=== PATIENT | female | born 1945 | race Caucasian/White ===

== ENCOUNTER → 2020-01-22 | Outpatient (REF) | payer MEDICARE ==
[2020-01-22 16:08] LABS: BLOOD UREA NITROGEN 16 MG/DL (7-18); CALCIUM LEVEL 9.6 MG/DL (8.8-10.2); CARBON DIOXIDE LEVEL 29 MEQ/L (21-32); CHLORIDE LEVEL 105 MEQ/L (98-107); CREATININE FOR GFR 0.92 MG/DL (0.55-1.30); GLOMERULAR FILTRATION RATE > 60.0 (>39); GLUCOSE, FASTING 141 MG/DL (70-100); POTASSIUM SERUM 4.4 MEQ/L (3.5-5.1); SODIUM LEVEL 140 MEQ/L (136-145)
== END ==
LOC: M PLALAB 11:57
PROVIDERS: ATTEND Surgery
DX: N63.10 Unspecified lump in the right breast, unspecified quadrant (principal); N64.52 Nipple discharge

== ENCOUNTER → 2020-01-22 | Outpatient (CLI) | payer MEDICARE ==
--- NOTE | 2020-01-22 14:13 | REP ---
FOCUSED RIGHT BREAST SONOGRAPHY: HISTORY: Palpable lump. Clinician breast exam. Palpable lump 11-o'clock position right breast 7-10 cm from the nipple. No comparison breast imaging is available. FINDINGS: Scanning in the right breast in the region of the 11-o'clock position shows heterogeneous fibroglandular background echotexture. No cyst, mass, or architectural distortion is seen. The technologist has measured an isoechoic area on the images from this region but this is felt to be consistent with normal breast parenchyma. No mass lesion is seen. IMPRESSION: BIRADS category 1 negative findings.
== END ==
LOC: M WHC 11:22
PROVIDERS: ATTEND Surgery
DX: N63.11 Unspecified lump in the right breast, upper outer quadrant (principal); N64.52 Nipple discharge

== ENCOUNTER → 2020-02-11 | Outpatient (CLI) | payer MEDICARE ==
[~2020-02-11] MED LIST: PROHANCE 279.3MG/ML 15ML VIAL As Ordered ONE
--- NOTE | 2020-02-13 17:05 | REP ---
MRI BILATERAL BREASTS WITH AND WITHOUT CONTRAST: HISTORY: Left bloody nipple discharge, palpable lump right breast 11-o'clock position. TECHNIQUE: Multiple sequences obtained in the axial, coronal, and sagittal planes prior to and following the intravenous administration of 11 mL ProHance. Images are evaluated on the [employer] software including dynamic post-IV gadolinium, axial T1-fat sat images, subtraction images, color overlay images, and MIP reconstruction images. Moderate diffuse fibroglandular tissue is seen bilaterally. There is a loop recorder at the posteromedial margin of the left breast which causes signal dropout at that location. There is mild bilateral background parenchymal enhancement. Anteriorly, in the inferomedial right breast, there is a subcentimeter cyst. No axillary adenopathy is seen. At the 12-o'clock position of the left breast, there is geographic ductal-type enhancement of a somewhat nodular pattern. Some of these areas demonstrate washout enhancement. This is in the anterior third of the left breast at the 12-o'clock position. There is another area of similar ductal micronodular enhancement about 8 cm behind the nipple. No other abnormal enhancement is seen in the left breast. In the right breast, upper inner aspect, there is a geographic area of somewhat nodular, thick ductal enhancement approximately 7 cm behind the nipple, extending posteriorly for a length of approximately 5 cm. This also demonstrates areas of washout-type enhancement. IMPRESSION: BI-RADS category 4 suspicious findings. In the left breast at 12-o'clock position, there is a geographic area of ductal micronodular enhancement which demonstrates several areas of washout-type enhancement. In the inner posterior right breast, there is a similar, but thicker band of somewhat nodular ductal-type enhancement which demonstrates washout characteristics, located approximately 7 cm from the nipple and extending posteriorly for a length of 5 cm. I would recommend the patient return for a second look ultrasound bilaterally. This should be performed at [facility] in the presence of Dr. Palm or Dr. Espinoza in order to directly correlate with the MRI findings. Electronically Signed by Anshul Palm MD 02/14/2020 07:30 P
== END ==
LOC: EDUNIT# 01-29 15:15 → M RAD 09:27
PROVIDERS: ATTEND Surgery
DX: N63.10 Unspecified lump in the right breast, unspecified quadrant (principal); N64.52 Nipple discharge; R92.8 Other abnormal and inconclusive findings on diagnostic imaging of breast; N60.01 Solitary cyst of right breast
CPT/HCPCS: A9576; C8908

== ENCOUNTER → 2020-03-04 | Outpatient (CLI) | payer MEDICARE ==
--- NOTE | 2020-03-05 15:13 | REP ---
ULTRASOUND BILATERAL BREASTS: Bilateral breast ultrasound is performed and correlated with recent MRI of the breast 02/11/2020. The MRI showed suspicious linear nodular enhancement posteriorly in the upper inner right breast. Ultrasound of that area shows a band of hypoechoic echotexture measuring approximately 1.4 x 0.3 x 0.6 cm, in the region of 1-o'clock 10 cm from the nipple. This may correspond to a portion of the abnormality seen on the MRI. Recommend ultrasound--guided biopsy of that area. The MRI also showed micronodular linear enhancement in the region of 12 -o'clock left breast. Scanning between 11 and 1-o'clock position is performed and demonstrates no definite sonographic abnormality that corresponds with the abnormality seen by MRI. I directly observed real-time ultrasound scanning bilaterally. IMPRESSION: ACR 4 suspicious. On the right, there is a hypoechoic band posteriorly in the upper inner aspect of the right breast in the region of the MRI abnormality. Therefore, ultrasound guided biopsy is recommended at this location of the right breast. There is no sonographic correlate visualized in the area of linear micronodular enhancement in the 12-o'clock region of the left breast. Recommend MR-guided biopsy of the left breast. Electronically Signed by Anshul Palm MD 03/05/2020 07:38 P
== END ==
LOC: M RAD 16:07
PROVIDERS: ATTEND Surgery
DX: R92.8 Other abnormal and inconclusive findings on diagnostic imaging of breast (principal)

== ENCOUNTER → 2020-04-01 | Outpatient (CLI) | payer MEDICARE ==
[~2020-04-01] MED LIST changes: +AMLO25TA PO; +ANAS1TAB2 PO; +ATOR40TA75 PO; +CALC600T57 PO; +CO Q200C10 PO; +IRON65TA2 PO; +LISI40TA PO; +MAGN400T3 PO; +METF500T13 PO; +METO25TA4 PO; +MULTCAP PO; +PLAV1TAB2 PO; +PRIL20TA2 PO; -PROHANCE 279.3MG/ML 15ML VIAL As Ordered ONE; +SYNT88TA2 PO; +VITA100T59 PO
--- NOTE | 2020-04-01 14:36 | REP ---
DIGITAL DIAGNOSTIC UNILATERAL RIGHT BREAST MAMMOGRAPHY WITH CAD: Two views. HISTORY: Marker clip placement views. Comparison mammography January 09, 2020. FINDINGS: Craniocaudal and mediolateral views of the right breast demonstrate a HydroMARK needle biopsy marker clip placed superiorly and medially in the posterior third of the right breast. No adjacent hematoma is appreciated. Vascular calcifications noted. No other mammographic finding. IMPRESSION: Marker clip seen in the superior medial quadrant of the right breast posteriorly.
[2020-04-01 15:08] VITALS: BP 132/74
--- NOTE | 2020-04-01 15:28 | REP ---
ULTRASOUND GUIDED RIGHT BREAST BIOPSY The procedure was performed under the direct supervision of Dr. Espinoza The patient has a history of a band of hypoechoic echo texture measuring approximately 1.4 x 0.3 x 0.6 cm in the region of the 1 o'clock position 10 cm from the nipple , in the right breast, seen on a previous ultrasound dated 03/04/2020. The risks and benefits of the procedure were explained to the patient and informed consent was obtained. The right breast nodule was localized using ultrasound guidance. The skin was prepped and draped in a sterile fashion. 1% Xylocaine was used as a local anesthetic. Using ultrasound guidance a 14 gauge coaxial needle biopsy system was inserted and advanced into the nodule. Six core biopsy samples were obtained. A marker clip was placed at the biopsy site. (HydroMARK shape 4). The patient tolerated the procedure well and there were no immediate complications. After the appropriate amount of monitored convalescence the patient was discharged from the department. Electronically Signed by ZAFAR River 04/01/2020 01:59 P Electronically Signed by Kevin Espinoza MD 04/01/2020 03:18 P
== END ==
LOC: M WHCPRO 07:40
PROVIDERS: ATTEND Surgery
DX: D05.11 Intraductal carcinoma in situ of right breast (principal)

== ENCOUNTER → 2020-04-04 | Outpatient (CLI) | payer MEDICARE | LOC: M IRPRO 11:30 | PROVIDERS: ATTEND Surgery | DX: R92.8 Other abnormal and inconclusive findings on diagnostic imaging of breast (principal); N64.52 Nipple discharge ==

== ENCOUNTER → 2020-05-17 | Outpatient (CLI) | payer MEDICARE | LOC: M LABSMTC 09:22 | PROVIDERS: ATTEND Anesthesiology | DX: Z01.812 Encounter for preprocedural laboratory examination (principal); Z20.828 Contact with and (suspected) exposure to other viral communicable diseases | CPT/HCPCS: C9803; U0003 ==

== ENCOUNTER 2020-05-22 07:52 | Inpatient (IN) | payer MEDICARE ==
[~2020-05-22] VITALS: Ht 165.1 cm; Wt 59.0 kg
[~2020-05-22 07:52] MED LIST changes: -ANAS1TAB2 PO; +HEPARIN SOD (PORCINE) 5000UNITS/ML 1ML VIAL/SYRINGE SQ ONE; -IRON65TA2 PO; +LIDOCAINE 1% MDV 20ML VIAL SQ PRN; +LR 1,000 ML IV ONE; -MAGN400T3 PO; -VITA100T59 PO; +ceFAZolin SOD 2 GM in IV 1 EA IV ONE
[2020-05-22] MEDS ORDERED: dexameTHASONE 4 MG/ML 1ML VIAL (J1100 PER 1MG) As Ordered ONE (08:20)
[2020-05-22] MEDS ORDERED: LIDOCAINE 2% 100MG/5ML SDV (FOR ANES.) As Ordered ONE (08:20)
[2020-05-22] MEDS ORDERED: propofoL 200 MG/20 ML VIAL As Ordered ONE (08:20)
[2020-05-22] MEDS ORDERED: KETOROLAC 60MG 2ML VIAL As Ordered ONE (08:20)
[2020-05-22] MEDS ORDERED: HYDROmorphone HCL 2 MG/ML 1ML VIAL (J1170) As Ordered ONE (08:20)
[2020-05-22] MEDS ORDERED: ONDANSETRON 4MG/2ML VIAL As Ordered ONE (08:20)
[2020-05-22] MEDS ORDERED: ACETAMINOPHEN 1000MG 100ML IV BTL (OFIRMEV) (J0131 PER 10MG) As Ordered ONE (08:20)
[2020-05-22] MEDS ORDERED: MIDAZOLAM INJ 2MG/2ML VIAL (J2250 PER 1MG) As Ordered ONE (08:20)
[2020-05-22] MEDS ORDERED: ROCURONIUM BROMIDE 50 MG/5 ML VIAL As Ordered ONE (08:20)
[2020-05-22] MEDS ORDERED: SUGAMMADEX SODIUM 500 MG/5 ML VIAL (BRIDION) As Ordered ONE (08:20)
[2020-05-22] MEDS ORDERED: fentaNYL 100 MCG/2 ML INJECTION (J3010) As Ordered ONE (08:21)
[2020-05-22] MEDS ORDERED: BUPIVACAINE HCL 0.25% 30ML VIAL As Ordered ONE (09:07)
[2020-05-22] MEDS ORDERED: LIDOCAINE 1% SDV 30ML VIAL As Ordered ONE (09:07)
[2020-05-22] MEDS ORDERED: PHENYLEPHRINE 10MG/ML 1ML VIAL (J2370 PER 1) As Ordered ONE (12:43)
[2020-05-22] MEDS ORDERED: BUPIVACAINE LIPOSOME/PF 1.3% 20ML VIAL (13.3MG/ML)(EXPAREL)(C9290 PER1MG) As Ordered ONE (12:54)
[2020-05-22] MEDS ORDERED: GLYCOPYRROLATE INJ 0.2 MG/ML 2 ML VIAL As Ordered ONE (13:03)
[2020-05-22] MEDS ORDERED: ACETAMINOPHEN 500 MG TAB PO PRN (15:30)
[2020-05-22] MEDS ORDERED: oxyCODONE 5MG TAB PO PRN (15:30)
[2020-05-22] MEDS ORDERED: ONDANSETRON 4MG/2ML VIAL IV PRN ×2 (15:30→16:15)
[2020-05-22] MEDS ORDERED: MORPHINE 2 MG/ML 1ML VIAL (J2270) IV PRN (15:30)
[2020-05-22] MEDS ORDERED: PERCOCET 5MG/325MG TAB PO PRN ×2 (15:45→16:15)
[2020-05-22] MEDS ORDERED: LR 1,000 ML IV SCH ×2 (15:45→16:15)
[2020-05-22] MEDS ORDERED: fentaNYL 100 MCG/2 ML INJECTION (J3010) IV PRN ×2 (15:45→16:15)
[2020-05-22] MEDS ORDERED: METOCLOPRAMIDE INJ 10MG/2ML VIAL (J2765 PER 1) IV PRN (16:15)
[2020-05-22] MEDS ORDERED: GLUCAGON INJ 1MG VIAL SC PRN (16:15)
[2020-05-22] MEDS ORDERED: GLUCOSE 4GM CHEW TABLET PO PRN (16:15)
[2020-05-22] MEDS ORDERED: DEXTROSE 50% 50 ML SYRINGE IV PRN (16:15)
--- NOTE | 2020-05-22 16:19 | HPEPDOC ---
[facility] Medical History & Physical Date of Admission May 22, 2020 Date of Service: May 22, 2020 History and Physical Chief complaint: Presented to the [facility] for an elective simple right mastectomy History of present illness: Patient is a 74-year-old female with a PMHx TIA (2008, on Plavix), Loop recorder (2018), HTN, DLP, NIDDM2, Hypothyroidism and GERD who presented to [facility] for an elective right simple mastectomy. Patients primary care provider is Dr. Robel Larsen and has medically optimize the patient preoperatively. 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 After discussion with breast surgeon, patient had opted to have simple right-sided mastectomy with sentinel lymph node biopsy. Hospitalist service was consulted for medical management postoperatively. Patient is seen in the recovery room currently she reports nausea but denies any headache or vomiting chest pain shortness of breath, palpitations, cough, abdominal pain, constipation, diarrhea, or urinary discomfort. Patient is unaware of any recent fevers or chills. She reports that her appetite is poor but denies any changes in her weight. 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 Review of Systems: 10 point review of systems complete, all negative otherwise stated in HPI Physical exam: - Vitals: BP [143/72], HR [65], RR [16], Sat [99%NC2L], Temp [97.4F] - General: Lying in bed, Speaking in full sentences, Awake / Alert - HEENT: NC, AT, PERRLA - CVS: RRR, +S1S2 - Lungs: Fair air entry bilaterally, No appreciable wheezing / rales / rhonchi - Chest: R mastectomy, incision clean without drainage noted, 2 SALLY drains noted with serosangious fluid - Abdomen: Soft, Non-distended, Non-tender - Extremities: No lower extremity edema, No calf tenderness - Neuro: No focal motor or sensory deficit - Skin: No visible rashes Assessment and Plan: Mastectomy - Patient has had a right-sided simple mastectomy completed with sentinel lymph node biopsy - She has received outpatient medical clearance from her primary care provider, Dr. Robel Lasren - Pain control and antibiotics as per surgical team TIA (2008) - s/p Loop recorder (2018) - Was on Plavix; has been held 5 days pre-operatively, will continue to hold for now - Will resume in next 24-48 hours if cleared by surgery HTN - BP well controlled - c/w Amlodipine, Lisinopril and Metoprolol with holding parameters DLP - c/w Atorvastatin NIDDM2 - Will start ISS Hypothyroidism - c/w Levothyroxine GERD - c/w Omeprazole DVT prophylaxis - Will start TEDs/Sequentials Vital Signs Vital Signs Date Time Temp Pulse Resp B/P (MAP) Pulse Ox O2 Delivery O2 Flow Rate FiO2 05/22/20 16:05 96.4 56 16 166/76 (106) 98 Nasal Cannula 2 Home Medications Scheduled Amlodipine Besylate (Amlodipine Besylate) 2.5 Mg Tablet, 5 MG PO DAILY Atorvastatin Calcium (Atorvastatin Calcium) 40 Mg Tablet, 40 MG PO DAILY Calcium Carbonate/Vitamin D3 (Calcium 600-Vit D3 200 Tablet) 1 Each Tablet, 1 TAB PO BID Clopidogrel Bisulfate (Plavix) 75 Mg Tablet, 75 MG PO DAILY Levothyroxine Sodium (Synthroid) 88 Mcg Tablet, 88 MCG PO DAILY Lisinopril (Lisinopril) 40 Mg Tablet, 40 MG PO DAILY Metformin HCl (Metformin HCl) 500 Mg Tablet, 500 MG PO BID Metoprolol Tartrate (Metoprolol Tartrate) 25 Mg Tablet, 25 MG PO DAILY Multivitamin (Multivitamins) 1 Each Capsule, 1 CAP PO DAILY Omeprazole Magnesium (Prilosec Otc) 20 Mg Tablet., 20 MG PO DAILY Ubidecarenone (Co Q-10) 200 Mg Capsule, 100 MG PO DAILY Allergies Coded Allergies: Sulfa (Sulfonamide Antibiotics) (Verified Allergy, Intermediate, itching, 05/15/20) ELIN JOHNSON MD May 22, 2020 16:19
[2020-05-22 17:00] VITALS: BP 165/81
[2020-05-22] MEDS: NS 1,000 ML IV SCH (17:00)
[2020-05-22 17:30] VITALS: BP 144/64
[2020-05-22] MEDS: HumaLOG INSULIN (NovoLOG) PER UNIT SC SCH (17:30)
[2020-05-22 18:30] VITALS: BP 167/77
--- NOTE | 2020-05-22 19:22 | ROOPDOC ---
[facility] Report Of Operation Report of Operation DATE OF PROCEDURE: 05/22/20 PREPROCEDURE DIAGNOSES: right breast cancer POSTPROCEDURE DIAGNOSES: right breast cancer and right breast retropectoral lump PROCEDURE: right simple mastectomy with right sentinel lymph node biopsy, right pectoral and serratus block SURGEON: Lachelle Early MANAGER REQUIREMENTS: ANESTHESIA:general ESTIMATED BLOOD LOSS: Approximately 35 mL. COMPLICATIONS: none REMARKS: Hydromark clip was noted with periop US. Site of the clip was noted with white stitch. Retropectoral lump was noted and excised DESCRIPTION OF PROCEDURE: INDICATIONS: Ms. 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 It is unclear how large the extent of DCIS is. On MRI there is 5 cm abnormal enhancement. Patient does not wish to proceed with additional testing to further delineate the extent of DCIS and wishes to proceed with mastectomy without reconstruction and right sentinel lymph node biopsy. Risks and possible complications of surgical procedure including bleeding, infection and injury to surrounding structures were explained to the patient and she wished to proceed. Consent was signed. Subcutaneous heparin 5000 units was given to patient in the preop area. Lymphoscintigraphy was reviewed preoperatively and the tracer was found in the right axilla. DETAILS: Patient was taken to the operating room and placed supine on the operating room table. Pillow was placed under her knees. Foam was placed under her heels. A sign in was called stating patients name, date of and the procedure to be done. Preoperative antibiotics were infused. Smooth induction of general anesthesia was done. Patients hands were extended on arm rests. Care was taken not to over extend patients arms. Pillow was placed under the knees and a foam was placed under the hills. Sequential compression devices were placed and assured to function correctly. Patients right breast and axilla were prepped and draped in the usual fashion. Neoprobe was used to femi the site of maximal signal in the axilla. The right breast biopsy clip was noted and noted on the skin. Appropriate time out was done and patients name, date of , and the procedure to be done were confirmed. Procedure was started with right mastectomy. The lowtransverse elliptical incision incorporating skin and nipple areolar complex was made with scalpel number 15. Subcutaneous flaps were developed using electrocautery dissection. Dissection was carried toward the inframammary fold inferiorly, toward sternum medially, toward inferior aspect of clavicle superiorly and toward the axilla laterally. Breast tissue was dissected from the muscle posteriorly and pectoralis fascia was taken with the specimen. The dissection was carried all the way to the [place] making sure that axilla is not entered prematurely. Breast specimen was marked for orientation with short black stitch marking superior edge of mastectomy and long black stitch marking latera edge of mastectomy. The location of the Hydromark clip was noted on the specimen with white stitch. The specimen was weighted and weight of 1248 grams was reported. The specimen was then placed in formaldehyde, and pas sed to pathology. Mastectomy cavity was irrigated and hemostasis was achieved. Incidentally, upon removal of the right breast, there was a right breast retropectoral lump noted. This lump is soft and measures about 3 cm. This is possible lipoma. Decision was made to resect this lesion as it obstructs access to the right axilla. The lump was marked with the patient information and sent to pathology for evaluation. Next, my attention was turned toward the right axilla which was accessed from the mastectomy site. Clavipectoral fascia was opened over the site of maximum Neoprobe signal. Area of high signal was identified laterally and superiorly in the axilla. Ackerman lymph node #1 was identified and 10 second ex-vivo count [place] [id number]. Specimen was labeled appropriately and sent to pathology. Axilla was explored for presence of any additional lymph nodes and none were identified. 10 second count of the background was 45. The axilla was irrigated and hemostasis was achieved. Next, clavipectoral fascia was partially approximated with interrupted Vicryl Stitches. At this point, two 19 [place] drains were placed into the mastectomy cavity and into the axillary space through separate stab incisions and secured at the skin with stitches. Next, pectoral and serratus plane blocks on the right side were done with Exparel. Deep dermal sutures were placed with 0 Vicryl to approximate mastectomy site edges. Dermis was closed with 2-0 Vicryl. Skin was closed with 4-0 Monocryl. Surgical glue was applied to the top of the incision. Prineo skin closing system dressing was applied next to the incision. Surgical gauze was placed over the incision. Surgical bra was placed. Final instruments and sponge count were correct. Patient emerged from general anesthesia without any problems. Patient tolerated procedure well and was taken to recovery unit in stable condition. LACHELLE EARLY DO May 22, 2020 19:22
[2020-05-22 19:44] VITALS: BP 141/81
[2020-05-22] MEDS ORDERED: HumaLOG INSULIN (NovoLOG) PER UNIT SC SCH (21:00)
[2020-05-22] MEDS: ceFAZolin SOD 2 GM in IV 1 EA IV SCH (22:03)
[2020-05-23 02:00] VITALS: BP 138/68
[2020-05-23] MEDS: ceFAZolin SOD 2 GM in IV 1 EA IV SCH (03:17)
[2020-05-23] MEDS: NS 1,000 ML IV SCH (05:05)
[2020-05-23] MEDS ORDERED: LEVOTHYROXINE 88MCG TABLET (0.088 MG) PO SCH (06:00)
[2020-05-23 06:16] VITALS: BP 137/63
[2020-05-23 06:53] LABS: HEMATOCRIT 42.3 % (36.0-47.0); HEMOGLOBIN 13.9 g/dl (12.0-15.5); MEAN CORPUSCULAR HEMOGLOBIN 29.3 pg (27.0-33.0); MEAN CORPUSCULAR HGB CONC 32.9 g/dl (32.0-36.5); MEAN CORPUSCULAR VOLUME 89.2 fl (80.0-96.0); PLATELET COUNT, AUTOMATED 180 10^3/uL (150-450); RED BLOOD COUNT 4.74 10^6/uL (4.00-5.40); WHITE BLOOD COUNT 12.1 10^3/uL (4.0-10.0)
[2020-05-23 07:17] LABS: CALCIUM LEVEL 8.3 MG/DL (8.8-10.2); GLOMERULAR FILTRATION RATE 57.4 (>39); MAGNESIUM LEVEL 1.3 MG/DL (1.8-2.4); POTASSIUM SERUM 4.3 MEQ/L (3.5-5.1)
[2020-05-23] MEDS: HumaLOG INSULIN (NovoLOG) PER UNIT SC SCH (07:30)
[2020-05-23 08:18] VITALS: BP 137/63
[2020-05-23] MEDS ORDERED: MULTIVITAMINS/MINERALS THERAP 1 TAB PO SCH (09:00)
[2020-05-23] MEDS ORDERED: METOPROLOL TART 25 MG TABLET PO SCH (09:00)
[2020-05-23] MEDS ORDERED: OMEPRAZOLE 20 MG CAP PO SCH (09:00)
[2020-05-23] MEDS ORDERED: ATORVASTATIN 20 MG TAB PO SCH (09:00)
[2020-05-23] MEDS ORDERED: amLODIPine 5 MG TAB PO SCH (09:00)
[2020-05-23] MEDS ORDERED: lisinopriL 40 MG TAB PO SCH (09:00)
[2020-05-23] MEDS ORDERED: METOPROLOL SUCC *XL* 25MG TAB (TopROL *XL*) PO SCH (09:00)
[2020-05-23] MEDS: MAG SULF 1GM/100ML (MAG RUN) 1 GM in IV 1 EA IV SCH ×2 (10:43→10:44)
--- NOTE | 2020-05-23 10:53 | DS.PDOC ---
Discharge Summary General Date of Admission 05/22/2020 Date of Discharge 05/23/2020 Discharge Summary PROCEDURES PERFORMED DURING STAY: Right-sided simple mastectomy with sentinel lymph node biopsy on 05/22/[address] Jes Lyons ADMITTING DIAGNOSES / DISCHARGE DIAGNOSES: Right-sided simple mastectomy with sentinel lymph node biopsy TIA (2008) Loop recorder (2008) HTN DLP NIDDM2 Hypothyroidism GERD DVT prophylaxis COMPLICATIONS/CHIEF COMPLAINT: Breast Cancer. HISTORY OF PRESENT ILLNESS: Patient is a 74-year-old female with a PMHx TIA (2008, on Plavix), Loop recorder (2018), HTN, DLP, NIDDM2, Hypothyroidism and GERD who presented to [facility] for an elective right simple mastectomy. Patients primary care provider is Dr. Robel Larsen and has medically optimize the patient preoperatively. 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 After discussion with breast surgeon, patient had opted to have simple right-sided mastectomy with sentinel lymph node biopsy. Hospitalist service was consulted for medical management postoperatively. Patient was seen and evaluated this morning. History patient did report some nausea, however, this morning appears to have resolved. Patient will be eating breakfast and lunch and if tolerating well. Will be quitting home with outpatient follow-up with primary care provider, oncology and breast surgery within the next 7 days. Patient has been advised to remain compliant with treatment plan and medications and return to emergency room if she expresses any problems. HOSPITAL COURSE: Right Simple Mastectomy - Patient has had a right-sided simple mastectomy completed with sentinel lymph node biopsy - She has received outpatient medical clearance from her primary care provider, Dr. Robel Larsen - Pain control and antibiotics as per surgical team TIA (2008) - s/p Loop recorder (2018) - Was on Plavix; has been held 5 days pre-operatively, was on hold while inpatient - Will resume Plavix on 05/24/2020 HTN - BP well controlled - c/w Amlodipine, Lisinopril and Metoprolol with holding parameters DLP - c/w Atorvastatin NIDDM2 - Will DC ISS on discharge - Resume oral anti-hyperglycemic agents Hypothyroidism - c/w Levothyroxine GERD - c/w Omeprazole DVT prophylaxis - c/w TEDs/Sequentials DISCHARGE MEDICATIONS: Please see below. ALLERGIES: Please see below. PHYSICAL EXAMINATION ON DISCHARGE: VITAL SIGNS: Please see below. Vitals (See below) General: Lying in bed, no acute distress, comfortable, AAOx3 HEENT: NC, AT Chest: [address] CVS: RRR, +S1S2 Lungs: Fair air entry b/l, auscultation is free of rhonchi, rales or wheezing Abdomen: Soft, ND, NT Extremities: - Edema, - Calf tenderness LABORATORY DATA: Please see below. ACTIVITY: [As tolerated]. DISCHARGE PLAN: Follow-up with primary care provider, oncology, breast surgery within the next 7 days Remain complaint with treatment plan and medications Return to the ER if you experience any problems DISPOSITION: Home DISCHARGE CONDITION: [Stable]. TIME SPENT ON DISCHARGE: 35 minutes. Vital Signs/I&Os Vital Signs Date Time Temp Pulse Resp B/P (MAP) Pulse Ox O2 Delivery O2 Flow Rate FiO2 05/23/20 08:18 72 137/63 05/23/20 06:16 96.4 18 98 Room Air 05/22/20 16:30 2 I&O- Last 24 Hours up to 6 AM 05/23/20 06:00 Intake Total 2370 ml Output Total 95 ml Balance 2275 ml Laboratory Data Labs 24H Laboratory Tests 2 05/22/20 17:38: Bedside Glucose (Misc Panel) 162H 05/22/20 19:48: Bedside Glucose (Misc Panel) 142H 05/23/20 06:27: Nucleated Red Blood Cells % (auto) 0.0, Anion Gap 5L, Glomerular Filtration Rate 57.4, Calcium Level 8.3L, Magnesium Level 1.3L CBC/BMP Laboratory Tests 05/23/20 06:27 FSBS Laboratory Tests Test 05/22/20 17:38 05/22/20 19:48 Range/Units Bedside Glucose (Misc Panel) 162 142 83-110 MG/DL Discharge Medications Scheduled Amlodipine Besylate (Amlodipine Besylate) 2.5 Mg Tablet, 5 MG PO DAILY, (Reported) Atorvastatin Calcium (Atorvastatin Calcium) 40 Mg Tablet, 40 MG PO DAILY, (Re ported) Calcium Carbonate/Vitamin D3 (Calcium 600-Vit D3 200 Tablet) 1 Each Tablet, 1 TAB PO BID, (Reported) Clopidogrel Bisulfate (Plavix) 75 Mg Tablet, 75 MG PO DAILY, (Reported) Levothyroxine Sodium (Synthroid) 88 Mcg Tablet, 88 MCG PO DAILY, (Reported) Lisinopril (Lisinopril) 40 Mg Tablet, 40 MG PO DAILY, (Reported) Metformin HCl (Metformin HCl) 500 Mg Tablet, 500 MG PO BID, (Reported) Metoprolol Tartrate (Metoprolol Tartrate) 25 Mg Tablet, 25 MG PO DAILY, (Reported) Multivitamin (Multivitamins) 1 Each Capsule, 1 CAP PO DAILY, (Reported) Omeprazole Magnesium (Prilosec Otc) 20 Mg Tablet.dr, 20 MG PO DAILY, (Reported) Ubidecarenone (Co Q-10) 200 Mg Capsule, 100 MG PO DAILY, (Reported) Allergies Coded Allergies: Sulfa (Sulfonamide Antibiotics) (Verified Allergy, Intermediate, itching, 05/15/20) ELIN JOHNSON MD May 23, 2020 10:53
--- NOTE | 2020-05-25 13:09 | IPNPDOC ---
Subjective General Date Seen: May 23, 2020 (7 am) Subject Chief Complaint/History The patient is a 74-year-old female admitted with a reason for visit of Breast Cancer, s/p R mastectomy and R SLNBx POD1, doing well postop. Current Medications Current Medications Current Medications Medications (Trade) Dose Ordered Sig/Satish Route PRN Reason Start Time Stop Time Status Last Admin Dose Admin Acetaminophen (Tylenol Tab) 500 mg Q4HP PRN PO PAIN LEVEL 1-4 05/22/20 15:30 05/23/20 12:44 DC 05/23/20 08:18 Amlodipine Besylate (Norvasc) 5 mg DAILY PO 05/23/20 09:00 05/23/20 12:44 DC 05/23/20 08:18 Atorvastatin Calcium (Lipitor) 40 mg DAILY PO 05/23/20 09:00 05/23/20 12:44 DC 05/23/20 08:16 Cefazolin Sodium/ Dextrose 2 gm/IV Miscellaneous Supplies 50 ml @ 75 mls/hr Q8H IV 05/22/20 20:00 05/23/20 12:44 DC 05/23/20 03:17 Dextrose (Dextrose 50%) 25 ml ASDIRECTED PRN IV SEE LABEL COMMENTS 05/22/20 16:15 05/23/20 12:45 DC Fentanyl Citrate (Sublimaze) 25 mcg Q5MP PRN IV PAIN LEVEL 5-10 05/22/20 15:45 05/22/20 16:45 DC Fentanyl Citrate (Sublimaze) 25 mcg Q5MP PRN IV PAIN LEVEL 5-10 05/22/20 16:15 05/22/20 17:15 Cancel Glucagon (Glucagon) 1 mg ASDIRECTED PRN SC SEE LABEL COMMENTS 05/22/20 16:15 05/23/20 12:45 DC Glucose (Glucose) 16 GM ASDIRECTED PRN PO SEE LABEL COMMENTS 05/22/20 16:15 05/23/20 12:45 DC Insulin Human Lispro (HumaLOG INSULIN) SEE PROTOCOL TABLE AC SC 05/22/20 17:30 05/23/20 12:45 DC Insulin Human Lispro (HumaLOG INSULIN) SEE PROTOCOL TABLE QHS SC 05/22/20 21:00 05/23/20 12:45 DC Lactated Ringer's 1,000 ml @ 50 mls/hr Q20H IV 05/22/20 15:45 05/22/20 16:45 DC Lactated Ringer's 1,000 ml @ 50 mls/hr Q20H IV 05/22/20 16:15 05/22/20 17:15 Cancel Levothyroxine Sodium (Synthroid) 88 mcg DAILY@0600 PO 05/23/20 06:00 05/23/20 12:44 DC 05/23/20 05:37 Lidocaine HCl (LIDOCAINE 1% MDV 20ml) 0.1 ml ONCE PRN SQ DISCOMFORT BEFORE IV START 05/22/20 06:00 05/22/20 16:31 DC Lisinopril (Prinivil) 40 mg DAILY PO 05/23/20 09:00 05/23/20 12:44 DC 05/23/20 08:20 Magnesium Sulfate/ Dextrose 1 gm/IV Miscellaneous Supplies 100 ml @ 100 mls/hr Q1H IV 05/23/20 10:00 05/23/20 11:59 DC 05/23/20 10:44 Metoclopramide HCl (REGLAN INJection) 10 mg Q6HP PRN IV NAUSEA OR VOMITING 05/22/20 16:15 05/22/20 17:15 DC Metoprolol Succinate (TopROL XL) 25 mg DAILY PO 05/23/20 09:00 05/23/20 12:45 DC 05/23/20 08:16 Metoprolol Tartrate (Lopressor) 25 mg DAILY PO 05/23/20 09:00 05/22/20 16:32 DC Morphine Sulfate (Morphine Sulfate Inj) 1 mg Q2H PRN IV PAIN LEVEL 8-10 05/22/20 15:30 05/23/20 12:44 DC Multivitamins (Theragram-M) 1 tab DAILY PO 05/23/20 09:00 05/23/20 12:45 DC 05/23/20 08:20 Omeprazole (PriLOSEC) 20 mg DAILY PO 05/23/20 09:00 05/23/20 12:45 DC 05/23/20 08:17 Ondansetron HCl (ZOFRAN INJection) 4 mg Q4HP PRN IV NAUSEA OR VOMITING 05/22/20 16:15 05/22/20 17:15 Cancel Ondansetron HCl (ZOFRAN INJection) 4 mg Q6HP PRN IV NAUSEA OR VOMITING 05/22/20 15:30 05/23/20 12:44 DC 05/22/20 16:04 Oxycodone HCl (Roxicodone, Oxyir) 5 mg Q6HP PRN PO PAIN LEVEL 4-7 05/22/20 15:30 05/23/20 12:44 DC Oxycodone/ Acetaminophen (Percocet 5mg/ 325mg Tablet) 1 tab ASDIRECTED PRN PO PAIN LEVEL 1-4 05/22/20 15:45 05/22/20 16:45 DC 05/22/20 16:20 Oxycodone/ Acetaminophen (Percocet 5mg/ 325mg Tablet) 1 tab ASDIRECTED PRN PO PAIN LEVEL 1-4 05/22/20 16:15 05/22/20 17:15 Cancel Sodium Chloride 1,000 ml @ 75 mls/hr [id number] IV 05/22/20 15:45 05/23/20 06:00 DC 05/22/20 17:00 Allergies Coded Allergies: Sulfa (Sulfonamide Antibiotics) (Verified Allergy, Intermediate, itching, 05/15/20) Objective Physical Examination Examination GENERAL APPEARANCE:Patient seen, sitting in bed, awake, alert, and oriented. Comfortable, in no acute distress. SKIN: Warm BREAST: Right mastectomy slaps viable, no reconstruction. incision well approximated. [address] on the R with s/s drainage - small amount. Left breast unremarkable. HEENT: Normocephalic, atraumatic. 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
--- NOTE | 2020-06-12 09:35 | REP ---
RIGHT BREAST LYMPHOSCINTIGRAPHY The procedure was performed under the direct supervision of Dr. Palm. The images were reviewed with Dr. Palm. The risks and benefits of the procedure were explained to the patient and informed consent was obtained. Using topical anesthetic and sterile technique, 1.029 mCi of Technetium-99m filtered sulfur colloid was injected subdermally in eight fractionated periareolar injections. Images obtained one hour after injection show a small focus of uptake in the right axilla. IMPRESSION: Right breast lymphoscintigraphy. There is a small focus of uptake in the right axilla. MTDD
[2020-07-08] MEDS ORDERED: VITA100T59 PO (13:20)
[2020-07-08] MEDS ORDERED: MAGN400T3 PO (13:20)
[2020-07-08] MEDS ORDERED: IRON65TA2 PO (13:20)
[2020-07-08] MEDS ORDERED: ANAS1TAB2 PO (14:34)
== END 2020-05-23 12:44 | disposition home or self-care (01) | DRG 583 ==
LOC: M SDC 07:52 → M MS5PR 16:14 → M SDC 16:50 → M MS5PR 16:50 → M SDC 05-23 12:44 → M MS5PR 05-23 12:44
PROVIDERS: ADMIT Internal Medicine; ATTEND Internal Medicine
PROC: 07T50ZZ Resection of Right Axillary Lymphatic, Open Approach (ICD-10-PCS; 2020-05-22)
PROC: 0HTT0ZZ Resection of Right Breast, Open Approach (ICD-10-PCS; principal; 2020-05-22 11:30)
DX: C50.911 Malignant neoplasm of unspecified site of right female breast (principal); I10 Essential (primary) hypertension; E11.9 Type 2 diabetes mellitus without complications; E03.9 Hypothyroidism, unspecified; K21.9 Gastro-esophageal reflux disease without esophagitis; Z86.73 Personal history of transient ischemic attack (TIA), and cerebral infarction without residual deficits; Z79.899 Other long term (current) drug therapy; Z88.2 Allergy status to sulfonamides

== ENCOUNTER 2020-10-03 21:32 | Inpatient (IN) | payer MEDICARE ==
[~2020-10-03] VITALS: Ht 167.6 cm; Wt 56.5 kg
[2020-10-03] MEDS: ENOXAPARIN 40MG/0.4ML SYRINGE (J1650 PER 10MG) SC SCH (09:00)
[~2020-10-03 21:32] MED LIST changes: +ANAS1TAB2 PO; -HEPARIN SOD (PORCINE) 5000UNITS/ML 1ML VIAL/SYRINGE SQ ONE; +IRON65TA2 PO; -LIDOCAINE 1% MDV 20ML VIAL SQ PRN; -LISI40TA PO; +LISI40TA4 PO; -LR 1,000 ML IV ONE; +MAGN400T3 PO; +VITA100T59 PO; -ceFAZolin SOD 2 GM in IV 1 EA IV ONE
[2020-10-03] MEDS ORDERED: ACET-908 PO (21:43)
[2020-10-03 22:29] LABS: BASO % 0.3 % (0.0-1.0); EOS # 0.1 10^3/uL (0.0-0.5); EOS % 0.6 % (0.0-3.0); HEMATOCRIT 45.7 % (36.0-47.0); HEMOGLOBIN 14.8 g/dl (12.0-15.5); LYMPH # 1.8 10^3/uL (1.5-5.0); MEAN CORPUSCULAR HEMOGLOBIN 28.5 pg (27.0-33.0); MEAN CORPUSCULAR HGB CONC 32.4 g/dl (32.0-36.5); MEAN CORPUSCULAR VOLUME 88.1 fl (80.0-96.0); MONO # 0.9 10^3/uL (0.0-0.8); MONO % 9.7 % (0.0-5.0); NEUTROPHILS % 68.2 % (36.0-66.0); PLATELET COUNT, AUTOMATED 222 10^3/uL (150-450); RED BLOOD COUNT 5.19 10^6/uL (4.00-5.40); WHITE BLOOD COUNT 8.7 10^3/uL (4.0-10.0)
--- NOTE | 2020-10-03 22:47 | REPVR ---
PROCEDURE INFORMATION: Exam: CT Head Without Contrast Exam date and time: 10/03/2020 10:31 PM Age: 74 years old Clinical indication: Pain; Visual disturbance; Headache not specified; Additional info: Headache visual chnages TECHNIQUE: Imaging protocol: Computed tomography of the head without contrast. Radiation optimization: All CT scans at this facility use at least one of these dose optimization techniques: automated exposure control; mA and/or kV adjustment per patient size (includes targeted exams where dose is matched to clinical indication); or iterative reconstruction. COMPARISON: No relevant prior studies available. FINDINGS: Brain: Area of old infarct in the lateral right parietal lobe in the central distribution of the right middle cerebral artery. There is a small focus of old infarct in the paramedian left occipital lobe. There is minimal patchy low attenuation of deep white matter. The sulci are upper normal. Cerebral ventricles: There is slight prominence of the central ventricular system. Bones/joints: Unremarkable. No acute fracture. Paranasal sinuses: Visualized sinuses are unremarkable. No fluid levels. Mastoid air cells: Visualized mastoid air cells are well aerated. Soft tissues: Unremarkable. IMPRESSION: Minimal chronic ischemic white matter change and atrophy with areas of old infarct involving the right parietal lobe and to a lesser degree the paramedian left occipital lobe. Electronically signed by: Yoav Mckeon On 10/03/2020 22:47:19 PM
--- NOTE | 2020-10-03 22:54 | REPVR ---
PROCEDURE INFORMATION: Exam: XR Chest, 1 View Exam date and time: 10/03/2020 10:44 PM Age: 74 years old Clinical indication: Device placement; Other: CVA TECHNIQUE: Imaging protocol: XR of the chest Views: 1 view. COMPARISON: No relevant prior studies available. FINDINGS: Tubes, catheters and devices: A loop recorder is noted over the heart. Lungs: The minimal lateral left base atelectasis or scar. Pleural space: Unremarkable. No pleural effusion. No pneumothorax. Heart/Mediastinum: Unremarkable. No cardiomegaly. Bones/joints: Unremarkable. IMPRESSION: 1. Loop recorder in position. 2. Minimal lateral left base atelectasis or scar. 3. Otherwise negative chest. Electronically signed by: Yoav Mckeon On 10/03/2020 22:54:24 PM
[2020-10-03 23:06] LABS: CK-MB VALUE MASS 1.7 NG/ML (<3.6); CPK CREATINE PHOSPHOKINASE 53 U/L (26-192); MB/CK RELATIVE INDEX 3.21 (< OR =4); TROPONIN I < 0.02 NG/ML (< 0.10)
[2020-10-04] VITALS (7 sets, daily range): BP systolic 138–148; BP diastolic 67–82
[2020-10-04] MEDS ORDERED: MOM 30ML SUSPENSION UDC PO PRN (00:45)
[2020-10-04] MEDS ORDERED: MAALOX 30 ML SUSP *UDC PO PRN (00:45)
[2020-10-04] MEDS ORDERED: ACETAMINOPHEN TAB 650MG DOSE (2X325MG) PO PRN (00:45)
[2020-10-04] MEDS ORDERED: AMLO1TAB24 PO (00:52)
[2020-10-04] MEDS ORDERED: MULT-90 PO (00:57)
[2020-10-04] MEDS ORDERED: METO1TAB32 PO (00:57)
[2020-10-04] MEDS ORDERED: MED REC COMMENT (00:59)
[2020-10-04] MEDS ORDERED: ISOVUE-370 76% 100ML VIAL As Ordered ONE (01:25)
--- NOTE | 2020-10-04 02:24 | REPVR ---
PROCEDURE INFORMATION: Exam: MR Head Without Contrast Exam date and time: 10/04/2020 2:12 AM Age: 74 years old Clinical indication: Altered mental status/memory loss and speech disturbance and visual disturbance; Other: Speech and vision changes; Unspecified TECHNIQUE: Imaging protocol: MR of the head without contrast. COMPARISON: CT Head without contrast 10/03/2020 10:31 PM FINDINGS: Age-related volume loss. Major vascular flow voids at the skull base are preserved. No extra-axial fluid collection. Non-specific white matter gliosis, probable chronic microvascular ischemia. Chronic right parietal lobe infarct. There is diffusion restriction involving the left occipital lobe extending to the left temporal lobe. Small focus of diffusion restriction at the left thalamus. There is associated T2 prolongation and mild edema. Visualized paranasal sinuses and mastoid air cells are clear. IMPRESSION: Early subacute left APIGEE DEVELOPER ischemic infarct. Electronically signed by: Davis Pride On 10/04/2020 02:23:47 AM
--- NOTE | 2020-10-04 03:31 | REPVR ---
PROCEDURE INFORMATION: Exam: CT Angiography Neck With Contrast Exam date and time: 10/04/2020 1:00 AM Age: 74 years old Clinical indication: Other: CVA TECHNIQUE: Imaging protocol: Computed tomography angiography of the neck with intravenous contrast. 3D rendering (Not supervised by radiologist): MIP and/or 3D reconstructed images were created by the technologist. Radiation optimization: All CT scans at this facility use at least one of these dose optimization techniques: automated exposure control; mA and/or kV adjustment per patient size (includes targeted exams where dose is matched to clinical indication); or iterative reconstruction. Contrast material: ISO; Contrast volume: 100 ml; Contrast route: INTRAVENOUS (IV); COMPARISON: No relevant prior studies available. FINDINGS: Right common carotid artery: No stenosis. No dissection or occlusion. Right internal carotid artery: No stenosis of the extracranial segment. No dissection or occlusion. Right external carotid artery: No occlusion or stenosis of the origin. Right vertebral artery: No stenosis. No dissection or occlusion. Left common carotid artery: No stenosis. No dissection or occlusion. Left internal carotid artery: Mild calcification at the proximal left ICA without stenosis. Left external carotid artery: No occlusion or stenosis of the origin. Left vertebral artery: Left vertebral artery is dominant. Left vertebral artery is dominant. Aorta: Aortic calcification. Larynx: Nodular lesion at the vallecula on the right measures 1 cm. Bones/joints: There are degenerative changes involving the spine. Soft tissues: Normal. No significant soft tissue swelling. Lungs: Emphysema. Scarring at the lung apices. IMPRESSION: 1. No stenosis or dissection. 2. Nodular lesion at the vallecula on the right measures 1 cm. Endoscopic evaluation may be considered. REFERENCES: NASCET CRITERIA. The degree of internal carotid artery stenosis is based on NASCET criteria. Normal is no stenosis. Mild is less than 50% stenosis. Moderate is 50-69% stenosis. Severe is 70% to 99% stenosis. Total occlusion is no detectable patent lumen. Electronically signed by: Davis Pride On 10/04/2020 03:31:24 AM
--- NOTE | 2020-10-04 03:39 | REPVR ---
PROCEDURE INFORMATION: Exam: CT Angiography Head With Contrast Exam date and time: 10/04/2020 1:00 AM Age: 74 years old Clinical indication: Other: CVA TECHNIQUE: Imaging protocol: Computed tomography angiography of the head with intravenous contrast. 3D rendering (Not supervised by radiologist): MIP and/or 3D reconstructed images were created by the technologist. Radiation optimization: All CT scans at this facility use at least one of these dose optimization techniques: automated exposure control; mA and/or kV adjustment per patient size (includes targeted exams where dose is matched to clinical indication); or iterative reconstruction. Contrast material: ISO; Contrast volume: 100 ml; Contrast route: INTRAVENOUS (IV); COMPARISON: CT Head without contrast 10/03/2020 10:31 PM FINDINGS: ANTERIOR CIRCULATION: Right internal carotid artery: Calcification involving the right carotid siphon without significant stenosis. Right middle cerebral artery: Unremarkable. No occlusion or significant stenosis. No aneurysm. Right anterior cerebral artery: Unremarkable. No occlusion or significant stenosis. No aneurysm. Left internal carotid artery: Calcification involving the left carotid siphon without stenosis. Left middle cerebral artery: Unremarkable. No occlusion or significant stenosis. No aneurysm. Left anterior cerebral artery: Unremarkable. No occlusion or significant stenosis. No aneurysm. POSTERIOR CIRCULATION: Right vertebral artery: Right vertebral artery terminates at PICA. Left vertebral artery: Left vertebral artery is dominant. Basilar artery: Unremarkable. No occlusion or significant stenosis. No aneurysm. Right posterior cerebral artery: Unremarkable. No occlusion or significant stenosis. No aneurysm. Left posterior cerebral artery: Severe distal left ELECTRICAL DESIGNER DRAFTER P2 stenosis. IMPRESSION: Severe distal left ELECTRICAL DESIGNER DRAFTER P2 stenosis. Electronically signed by: Davis Pride On 10/04/2020 03:39:18 AM
[2020-10-04] MEDS ORDERED: DEXTROSE 50% 50 ML SYRINGE IV PRN (03:45)
[2020-10-04] MEDS ORDERED: GLUCOSE 4GM CHEW TABLET PO PRN (03:45)
[2020-10-04] MEDS ORDERED: GLUCAGON INJ 1MG VIAL SC PRN (03:45)
[2020-10-04] MEDS: LEVOTHYROXINE 88MCG TABLET (0.088 MG) PO SCH (06:12)
[2020-10-04 06:48] LABS: HEMATOCRIT 46.6 % (36.0-47.0); HEMOGLOBIN 15.2 g/dl (12.0-15.5); MEAN CORPUSCULAR HEMOGLOBIN 28.8 pg (27.0-33.0); MEAN CORPUSCULAR HGB CONC 32.6 g/dl (32.0-36.5); MEAN CORPUSCULAR VOLUME 88.4 fl (80.0-96.0); PLATELET COUNT, AUTOMATED 208 10^3/uL (150-450); RED BLOOD COUNT 5.27 10^6/uL (4.00-5.40); WHITE BLOOD COUNT 8.4 10^3/uL (4.0-10.0)
--- NOTE | 2020-10-04 06:59 | HPEPDOC ---
[facility] Medical History & Physical Date of Admission Oct 04, 2020 Date of Service: Oct 04, 2020 Attending Physician: MOJGAN THAO MD History and Physical TIME OF SERVICE: 113am CHIEF COMPLAINT: abnormal behavior HISTORY OF PRESENT ILLNESS: This 74 yr old F was brought to the hospital by her son who provided the history; when I asked questions the patient kept on responding with I dont know and would ask her son or look at him for answers. son noticed that for the last week his mother has been c/o worsening of her chronic migraines, and seems forgetful. He was especially concerned because over the last 3 days she has been acting confused and as if she cant read. The patient is not sure if she has had any falls or dropped any objects. REVIEW OF SYSTEMS: unobtainable bc pt is forgetful PAST MEDICAL/ SURGICAL HISTORY: Migraines HTN Hypothyroidism Hx of CVA (per son they learned about this 1 yr ago bc of a CT scan but they didnt notice any symptoms) Mastectomy to manage breast cancer Loop recorder Hysterectomy SOCIAL HISTORY: She doesnt smoke, drink or use drugs FAMILY HISTORY: None per son ALLERGIES: Please see below. HOME MEDICATIONS: Please see below. PHYSICAL EXAMINATION: Vital Signs Date Time Temp Pulse Resp B/P (MAP) Pulse Ox O2 Delivery O2 Flow Rate FiO2 10/03/20 21:32 97.8 77 16 160/76 (104) 99 Room Air GENERAL APPEARANCE: well-nourished / well developed/ NAD HEENT: mask covering lower face CARDIOVASCULAR: RRR/NMRG/ radial pulses intact LUNGS: CTAB on RA ABDOMEN: soft & NT MUSCULOSKELETAL: NCAT /TIFFANIE x 4 NEUROLOGICAL: CN 2-12 except for vision are intact / tongue is mid line / she is unable to see my fingers on the right side of her face / she attempts to complete finger to nose testing on with the left index finger but misses my fingers / she doesnt seem to see my fingers when I ask her perform finger to nose testing on the right PSYCHIATRIC: A&O to person, but confused LABORATORY DATA: Immature Granulocyte % (Auto) 0.2, Neutrophils (%) (Auto) 68.2H, Lymphocytes (%) (Auto) 21.0L, Monocytes (%) (Auto) 9.7H, Eosinophils (%) (Auto) 0.6, Basophils (%) (Auto) 0.3, Neutrophils # (Auto) 6.0, Lymphocytes # (Auto) 1.8, Monocytes # (Auto) 0.9H, Eosinophils # (Auto) 0.1, Basophils # (Auto) 0.0, Nucleated Red Blood Cells % (auto) 0.0, Activated Partial Thromboplast Time 27.4, Total Cr eatine Kinase 53, Creatine Kinase MB 1.7, Creatine Kinase MB Relative Index 3.21, Troponin I < 0.02 10/03/20 22:40: Bedside Glucose (Misc Panel) 113H 10/03/20 22:41: POC Glucose (Misc Panel) 130H, POC Sodium (Misc Panel) 140, POC Potassium (Misc Panel) 4.1, POC Chloride (Misc Panel) 103, POC Total CO2 (Misc Panel) 27.0, POC Blood Urea Nitrogen (Misc Panel 21, POC Ionized Calcium (Misc Panel) 5.1, POC Creatinine (Misc Panel) 0.9, POC Hematocrit (Misc Panel) 45.0 10/04/20 05:32: Bedside Glucose (Misc Panel) 110 10/04/20 06:09: Nucleated Red Blood Cells % (auto) 0.0 IMAGING: Chest xray IMPRESSION: 1. Loop recorder in position. 2. Minimal lateral left base telectasis or scar. 3. Otherwise negative chest. CT head IMPRESSION: Minimal chronic ischemic white matter change and atrophy with areas of old infarct involving the right parietal lobe and to a lesser degree the paramedian left occipital lobe. CTA neck IMPRESSION: 1. No stenosis or dissection. 2. Nodular lesion at the vallecula on the right measures 1 cm. Endoscopic evaluation may be considered. CTA head IMPRESSION: Severe distal left POLISHER BALANCE SCREWHEAD P2 stenosis. MRI brain IMPRESSION: Early subacute left POLISHER BALANCE SCREWHEAD ischemic infarct. MICROBIOLOGY: 10/04/20 Respiratory Virus Panel (PCR) ([facility]) - Final, Complete ASSESSMENT: Ms. Arzola is a 74 yr old w a hx of migraines, and old CVA who was brought by her son who noticed that she has been acting strange, cant read and has been c/o worsening migraines for 1 week. MRI showed early subacute CVA affecting POLISHER BALANCE SCREWHEAD circulation PLAN: 1. Confusion & visual field deficits 2/2 subacute posterior CVAs Plan: admit to medical floor / telemetry for 48H /fall precautions / aspiration precautions/ NPO pending swallow evaluation / PT/OT consult ARU screen / per Dr. Maria add ASA for 3 weeks to home dose of Plavix & statin / f/u lipid panel, A1C & Echo /she already has a loop recorder /if the cause remains unclear after the Echo, her primary Neurologist Dr. Hill may consider consider Hypercoagulable work up on an out pt basis 2. HTN Plan: amlodipine, metoprolol 3. Hypothyroidism Plan: levothyroxine 4. Breast cancer Plan: anastrozole DVT Px w Lovenox Dispo: home after at least 2 midnights stay Home Medications Scheduled Amlodipine Besylate (Amlodipine Besylate) 5 Mg Tablet, 5 MG PO DAILY Anastrozole (Anastrozole) 1 Mg Tablet, 1 MG PO DAILY for breast cancer Ascorbic Acid (Vitamin C) 100 Mg Tablet, 100 TAB PO DAILY Atorvastatin Calcium (Atorvastatin Calcium) 40 Mg Tablet, 40 MG PO DAILY Calcium Carbonate/Vitamin D3 (Calcium 600-Vit D3 200 Tablet) 1 Each Tablet, 1 TAB PO BID Clopidogrel Bisulfate (Plavix) 75 Mg Tablet, 75 MG PO DAILY Levothyroxine Sodium (Synthroid) 88 Mcg Tablet, 88 MCG PO DAILY Lisinopril (Lisinopril) 40 Mg Tablet, 40 MG PO DAILY Magnesium Oxide (Magnesium Oxide) 400 Mg Tablet, 400 MG PO DAILY Metformin HCl (Metformin HCl) 500 Mg Tablet, 500 MG PO BID Metoprolol Succinate (Metoprolol Succinate) 25 Mg Tab.er.24h, 25 MG PO DAILY Multivitamin (Multivitamin) 1 Each Tablet, 1 EACH PO DAILY Omeprazole Magnesium (Prilosec Otc) 20 Mg Tablet., 20 MG PO DAILY Ubidecarenone (Co Q-10) 200 Mg Capsule, 100 MG PO DAILY Scheduled PRN Acetaminophen (Acetaminophen) 325 Mg Tablet, 650 MG PO Q4-6HP PRN for pain or fever Miscellaneous Medications [Med Rec Comment] USED LIST FROM HOME FOR MED REC,SPOKE WITH SON. PATIENT NOT SURE WHEN LAST DOSES TAKEN Allergies Coded Allergies: Sulfa (Sulfonamide Antibiotics) (Verified Allergy, Intermediate, itching, 05/15/20) A-FIB/CHADSVASC A-FIB History Current/History of A-Fib/PAF?: No Current PO Anticoag Therapy: No MOJGAN THAO MD Oct 04, 2020 06:58
[2020-10-04 07:04] LABS: BLOOD UREA NITROGEN 18 MG/DL (7-18); CALCIUM LEVEL 9.8 MG/DL (8.8-10.2); CARBON DIOXIDE LEVEL 23 MEQ/L (21-32); CHLORIDE LEVEL 105 MEQ/L (98-107); CREATININE FOR GFR 0.81 MG/DL (0.55-1.30); GLOMERULAR FILTRATION RATE > 60.0 (>39); GLUCOSE, FASTING 119 MG/DL (70-100); POTASSIUM SERUM 4.6 MEQ/L (3.5-5.1); SODIUM LEVEL 140 MEQ/L (136-145)
[2020-10-04 07:34] LABS: CHOLESTEROL LEVEL 134 MG/DL (<200); CHOLESTEROL RISK RATIO 3.268 (<5); HDL CHOLESTEROL 41 MG/DL (>40); LDL CHOLESTEROL 73 MG/DL (<100); NON-HDL-C 93 MG/DL; TRIGLYCERIDES LEVEL 98 MG/DL (<150)
[2020-10-04] MEDS: HumaLOG INSULIN (NovoLOG) PER UNIT SC SCH ×4 (08:42→20:54)
[2020-10-04] MEDS: CLOPIDOGREL 75 MG TAB PO SCH (08:43)
[2020-10-04] MEDS: ENOXAPARIN 40MG/0.4ML SYRINGE (J1650 PER 10MG) SC SCH (08:43)
[2020-10-04] MEDS: MAGNESIUM OXIDE 400MG TAB (MAG-OX) PO SCH (08:44)
[2020-10-04] MEDS: ASPIRIN 81 MG ENTERIC TAB PO SCH (08:44)
[2020-10-04] MEDS: OMEPRAZOLE 20 MG CAP PO SCH (08:44)
[2020-10-04] MEDS: ATORVASTATIN 20 MG TAB PO SCH (08:44)
[2020-10-04] MEDS: METOPROLOL SUCC *XL* 25MG TAB (TopROL *XL*) PO SCH (08:45)
[2020-10-04] MEDS: amLODIPine 5 MG TAB PO SCH (08:45)
[2020-10-04] MEDS ORDERED: lisinopriL 40 MG TAB PO SCH (09:00)
[2020-10-04 13:22] LABS: CK-MB VALUE MASS 1.6 NG/ML (<3.6); CPK CREATINE PHOSPHOKINASE 53 U/L (26-192); MB/CK RELATIVE INDEX 3.02 (< OR =4); TROPONIN I < 0.02 NG/ML (< 0.10)
[2020-10-05 06:00] VITALS: BP 135/76
[2020-10-05] MEDS: LEVOTHYROXINE 88MCG TABLET (0.088 MG) PO SCH (06:41)
[2020-10-05 06:56] LABS: HEMATOCRIT 43.2 % (36.0-47.0); MEAN CORPUSCULAR HEMOGLOBIN 28.9 pg (27.0-33.0); MEAN CORPUSCULAR HGB CONC 32.4 g/dl (32.0-36.5); MEAN CORPUSCULAR VOLUME 89.1 fl (80.0-96.0); PLATELET COUNT, AUTOMATED 190 10^3/uL (150-450); RED BLOOD COUNT 4.85 10^6/uL (4.00-5.40); WHITE BLOOD COUNT 8.8 10^3/uL (4.0-10.0)
[2020-10-05 07:16] LABS: CALCIUM LEVEL 9.3 MG/DL (8.8-10.2); CREATININE FOR GFR 0.98 MG/DL (0.55-1.30); GLOMERULAR FILTRATION RATE 58.7 (>39); POTASSIUM SERUM 4.3 MEQ/L (3.5-5.1)
--- NOTE | 2020-10-05 08:04 | ECGEPIP ---
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
[2020-10-05] MEDS: HumaLOG INSULIN (NovoLOG) PER UNIT SC SCH ×4 (08:56→20:30)
[2020-10-05] MEDS: ASPIRIN 81 MG ENTERIC TAB PO SCH (08:57)
[2020-10-05] MEDS: ATORVASTATIN 20 MG TAB PO SCH (08:57)
[2020-10-05] MEDS: MAGNESIUM OXIDE 400MG TAB (MAG-OX) PO SCH (08:57)
[2020-10-05] MEDS: OMEPRAZOLE 20 MG CAP PO SCH (08:57)
[2020-10-05] MEDS: ENOXAPARIN 40MG/0.4ML SYRINGE (J1650 PER 10MG) SC SCH (08:57)
[2020-10-05] MEDS: CLOPIDOGREL 75 MG TAB PO SCH (08:57)
--- NOTE | 2020-10-05 10:11 | IPN ---
PROGRESS NOTE DATE: 10/05/2020 SUBJECTIVE: Marci is seen [facility], admitted with a stroke. She has an early subacute left posterior cerebral artery ischemic infarct. She has some confusion and visual field defects, I do not know her baseline mental status. She seems alert but a little vague today. Blood pressure remains well-controlled. No hypertension or hypotension. No chest pain or shortness of breath. PHYSICAL EXAMINATION: VITAL SIGNS: Blood pressure is 135/76, afebrile. Vital signs are stable. LUNGS: Clear. HEART: Heart rhythm is regular. ABDOMEN: Soft, nontender. NEUROLOGIC: No visual field loss. Normal strength in both arms and legs. LABORATORY DATA: CBC unremarkable. CMP unremarkable. IMPRESSION: 1. Stroke. Continue her current regimen, Plavix, aspirin 81 mg daily, home safety evaluation tomorrow. 2. Diabetes on sliding scale insulin coverage. 3. Hypertension. Blood pressure is well-controlled without hyper or hypotension. 4. Hypothyroidism, continue current dose of levothyroxine. 5. Home safety evaluation tomorrow.
[2020-10-05] MEDS: METOPROLOL SUCC *XL* 25MG TAB (TopROL *XL*) PO SCH (10:17)
[2020-10-05] MEDS: amLODIPine 5 MG TAB PO SCH (10:18)
[2020-10-05 14:00] VITALS: BP 96/58
[2020-10-05 15:17] VITALS: BP 102/58
[2020-10-05 22:00] VITALS: BP 137/71
[2020-10-06] MEDS: LEVOTHYROXINE 88MCG TABLET (0.088 MG) PO SCH (05:27)
[2020-10-06 06:00] VITALS: BP 138/73
[2020-10-06 06:29] LABS: HEMOGLOBIN 14.7 g/dl (12.0-15.5); MEAN CORPUSCULAR HEMOGLOBIN 28.9 pg (27.0-33.0); MEAN CORPUSCULAR VOLUME 90.4 fl (80.0-96.0); PLATELET COUNT, AUTOMATED 197 10^3/uL (150-450); RED BLOOD COUNT 5.09 10^6/uL (4.00-5.40); WHITE BLOOD COUNT 9.4 10^3/uL (4.0-10.0)
[2020-10-06 06:59] LABS: CALCIUM LEVEL 9.4 MG/DL (8.8-10.2); CREATININE FOR GFR 1.03 MG/DL (0.55-1.30); GLOMERULAR FILTRATION RATE 55.5 (>39); POTASSIUM SERUM 4.1 MEQ/L (3.5-5.1)
[2020-10-06] MEDS: HumaLOG INSULIN (NovoLOG) PER UNIT SC SCH ×2 (08:52→12:44)
[2020-10-06] MEDS: ENOXAPARIN 40MG/0.4ML SYRINGE (J1650 PER 10MG) SC SCH (08:52)
[2020-10-06] MEDS: ASPIRIN 81 MG ENTERIC TAB PO SCH (08:53)
[2020-10-06] MEDS: CLOPIDOGREL 75 MG TAB PO SCH (08:53)
[2020-10-06] MEDS: MAGNESIUM OXIDE 400MG TAB (MAG-OX) PO SCH (08:53)
[2020-10-06] MEDS: ATORVASTATIN 20 MG TAB PO SCH (08:53)
[2020-10-06 08:54] VITALS: BP 140/74
[2020-10-06] MEDS: amLODIPine 5 MG TAB PO SCH (08:54)
[2020-10-06] MEDS: METOPROLOL SUCC *XL* 25MG TAB (TopROL *XL*) PO SCH (08:54)
[2020-10-06] MEDS: OMEPRAZOLE 20 MG CAP PO SCH (08:54)
[2020-10-06] MEDS ORDERED: FLUBLOK(EGG FREE)(QUAD)INFLUENZA VACC 0.5ML SYRINGE 18YRS & OLDER IM ONE (09:00)
--- NOTE | 2020-10-06 09:42 | DSES ---
DISCHARGE SUMMARY DATE OF ADMISSION: 10/04/2020 DATE OF DISCHARGE: 10/06/2020 DISCHARGE DIAGNOSIS: Acute ischemic stroke, left posterior cerebral artery distribution. SECONDARY DIAGNOSES: 1. Type-2 diabetes. 2. Hypertension. 3. Hypothyroidism. HISTORY: Patient admitted with a stroke. Please see details in History and Physical from admission. HOSPITAL COURSE: She was admitted to a medical bed. Her cardiac rhythms were table. Vital signs remained stable. Blood pressure was low. Medications were adjusted to account for this. She has some visual field defects which are interfering with her physical therapy and use of a cane so she is being transferred to the ARU unit. PHYSICAL EXAM: VITAL SIGNS: Today blood pressure is 140/74. It was down to 196/58 yesterday before adjusting her medications. O2 saturation 96%. GENERAL APPEARANCE: She is alert, conversant, no distress. HEENT: Visual field loss is noted on the left. LUNGS: Clear. HEART: Regular rate and rhythm. ABDOMEN: Soft, nontender. EXTREMITIES: No peripheral edema, good distal pulses. NEUROLOGIC: Moves arms and legs with equal strength and coordination, normal [id number] testing. CT angiography showed a severe left posterior cerebral artery stenosis. Carotids were without stenosis. Brain MRI as summarized above. Echocardiogram report is still pending. Lipids looked good. LDL cholesterol 73, HDL 41. Hemoglobin A1c 7%. DISPOSITION: She is discharged to ARU. She is on a DASH diet. Her activity is as tolerated. MEDICATIONS ON DISCHARGE: 1. Amlodipine 5 mg daily. 2. Aspirin 81 mg daily. 3. Atorvastatin 40 mg daily. 4. Plavix 75 mg daily. 5. Sliding scale Insulin. 6. Levothyroxine 88 mcg daily. 7. Omeprazole 20 mg daily. 8. Anastrozole 1 mg daily. 9. Metoprolol succinate 25 mg daily. 10. Note that I stopped her Lisinopril today due to yesterday's hypotensive episode. Echocardiogram is still pending. At the time of this dictation there are no other pending labs.
[2020-10-06 14:00] VITALS: BP_SYST 140; BP_SYST 155; BP_DIAS 73; BP_DIAS 88
== END 2020-10-06 15:05 | DRG 66 ==
LOC: M ED 21:32 → M ED INP 10-04 00:43 → M MSPAV 10-04 05:17
PROVIDERS: ADMIT Internal Medicine; ATTEND Family Medicine
DX: I63.9 Cerebral infarction, unspecified (principal); I10 Essential (primary) hypertension; E11.9 Type 2 diabetes mellitus without complications; E03.9 Hypothyroidism, unspecified; Z79.899 Other long term (current) drug therapy; Z79.82 Long term (current) use of aspirin; Z79.4 Long term (current) use of insulin; G43.909 Migraine, unspecified, not intractable, without status migrainosus; Z85.3 Personal history of malignant neoplasm of breast

== ENCOUNTER 2020-10-06 09:41 | Inpatient (IN) | payer MEDICARE ==
[~2020-10-06] VITALS: Ht 167.6 cm; Wt 65.2 kg
[~2020-10-06 09:41] MED LIST changes: +ACET-908 PO; +AMLO1TAB24 PO; +LISI40TA PO; -LISI40TA4 PO; +MED REC COMMENT; +METO1TAB32 PO; +MULT-90 PO
[2020-10-06] MEDS ORDERED: ACETAMINOPHEN TAB 650MG DOSE (2X325MG) PO PRN (16:45)
[2020-10-06] MEDS ORDERED: GLUCOSE 4GM CHEW TABLET PO PRN (16:45)
[2020-10-06] MEDS ORDERED: DEXTROSE 50% 50 ML SYRINGE IV PRN (16:45)
[2020-10-06] MEDS ORDERED: GLUCAGON INJ 1MG VIAL SC PRN (16:45)
[2020-10-06] MEDS ORDERED: BISACODYL 10 MG SUPP PR PRN (16:45)
[2020-10-06] MEDS ORDERED: MAALOX 30 ML SUSP *UDC PO PRN (16:45)
--- NOTE | 2020-10-06 16:48 | HPEPDOC ---
Insulation Estimator Note DATE OF ADMISSION: 10-06-20 DATE OF SERVICE: 10-06-20 TIME OF ADMISSION: Please refer to physician's admission order. SOURCE OF ADMISSION INFORMATION: [facility] record and patient CHIEF COMPLAINT: stroke HISTORY OF PRESENT ILLNESS: 74F pmh migraines, breast cancer s/p mastectomy, HTN, hypothyroidism, hx of CVA about 1 year ago, loop recorder who presented to [facility] ED on 10-04-20 with visual disturbances and difficulty seeing objects to the right of her in addition to worsening migraines. CTH demonstrated Minimal chronic ischemic white matter change and atrophy with areas of old infarct involving the right parietal lobe and to a lesser degree the paramedian left occipital lobe. MRI brain revealed, Early subacute left TRANSFORMATION COACH ischemic infarct. She was continued on ASA and Plavix and ECHO was ordered. She had episdoes of low blood pressure for which her Lisinopril was held, notable impairments in mobility and ADLs below her prior level of function deemed medically appropriate for discharge to ARU on 10-06-20. REVIEW OF SYSTEMS: The following is a completed review of systems and has been reviewed. Review of systems otherwise unremarkable. PAIN: Patient self reports no pain EYES: reprot vision loss in her right visual field EARS, NOSE, & THROAT: No throat pain, or dysphagia, or rhinorrhea CARDIOVASCULAR: Denies chest pain or palpitations PULMONARY: Denies shortness of breath GASTROINTESTINAL: Denies constipation/diarrhea GENITOURINARY: denies dysuria MUSCULOSKELETAL: generalized weakness NEUROLOGICAL:+homonymous hemianopsia HEMATOLOGICAL: denies easy bruising SKIN: no rash PSYCHIATRIC: Unremarkable All other review of systems found to be negative. PAST MEDICAL HISTORY: as per HPI PAST SURGICAL HISTORY: As per HPI and hysterectomy ALLERGIES: Please see below. MEDICATIONS: Please see below. SOCIAL HISTORY: No smoking/illicit drugs/drinking DIET: low sodium, consistent carb PHYSICAL EXAMINATION: VITAL SIGNS: Please see below. GENERAL: Pleasant and cooperative. No acute distress. HEENT: PERRL. Extraocular movements intact. Clear conjunctiva CARDIOVASCULAR: Regular rate and rhythm. No murmurs, rubs, or gallops LUNGS: Clear to auscultation bilaterally. No wheezes. No rhonchi, s/p right mastectomy ABDOMEN: Soft, nontender, nondistended. Positive bowel sounds. Normal active bowel sounds NEUROLOGICAL: Alert and oriented times three. Cranial nerves II through XII grossly intact. Sensation grossly intact with no notable neglect (-) dysmetria (-) babinksi EXTREMITIES: 5\5 strength bilateral upper extremities. 5\5 strength right lower extremity. 5/5 strength in left lower extremity. SKIN: LABORATORY DATA: Please see below. IMAGING:Imaging documentation personally reviewed by record FUNCTIONAL STATUS: Premorbid: Independent with all activities of daily life as well as mobility On Admission: contact guard-Min assist for ambulation, functional transfers, dr covington, toileting GOALS: Mod-I with RW for ambulating community distances, dressing, toileting, stairs, bathing ASSESSMENT:74-year-old F with past medical history of stroke who presents status post with new stroke symptoms diagnosed with a left occipital infarct with right sided homonymous hemianopsia PLAN: 1. Rehab- PT/OT advance mobility and ADLs, teach compensatory skills for visual deficit, balance training LOAN INSPECTOR- cog and swallow eval 2. Neuro- hx of stroke with new left occipital ischemic infarct with right sided homymous hemianopsia contributing to significant impairments in moblity -c/u ASA, plavix, and statin -optimize BPs 3. Cardiac- hx of HTN c/u BP meds, medicine consulted to assist in overall management, f/u ECHO results -loop recorder in place 4. Resp- encourage incentive spirometry, monitor for infection 5. Onc- s/p right mastectomy, c/u anastrozole 6. GI ppx- prilosec 7. DVT ppx- lovenox 8. - monitor PVRs 9. Dispo- tbd POST ADMISSION PHYSICIAN EVALUATION: Medical and functional status: Description of medical status, medical assessment: As above. Rehabilitation diagnosis and current and prior cold morbid medical conditions as above. Risk of complications and plans to mitigate them as above. Description of functional status current status is as above. Prior status as above. Status compared to preadmission: There are no clinically significant differences between the patient's current status and the information described on the preadmission screening document. Treatment plan anticipated: Treatment plan is as described above. Required disciplines including physical therapy, occupational therapy, others as noted above. Intensity of services: 3 hours a day, 6 days a week. Special considerations: There are no specific special or safety considerations that would likely preclude immediate implementation of an intensive rehabilitation program or subsequently influence the plan of care. ATTESTATION: Considering all the information above, it is my best judgment that this patient requires intensive rehabilitation therapy as described above and an inpatient hospital environment due to the complexity of nursing, medical, and rehabilitation needs required by the patient. Furthermore, this patient can reasonably be expected to participate in an benefit from an inpatient rehabilitation stay with an interdisciplinary team approach to the delivery of rehabilitation care under the direction and supervision of rehabilitation physician. PROGNOSIS: Excellent ESTIMATED LENGTH OF STAY:7-10 days. PROJECTED DISCHARGE DESTINATION: Home with family support and any durable medical equipment required to increase functional safety and mobility. TIME SPENT COUNSELING AND COORDINATING INITIAL CARE: Greater than 70 minutes. Vital Signs Vital Signs Date Time Temp Pulse Resp B/P (MAP) Pulse Ox O2 Delivery O2 Flow Rate FiO2 10/06/20 17:00 98.0 68 18 118/57 (77) 95 Room Air Home Medications Scheduled Amlodipine Besylate (Amlodipine Besylate) 5 Mg Tablet, 5 MG PO DAILY, (Reported) Anastrozole (Anastrozole) 1 Mg Tablet, 1 MG PO DAILY Ascorbic Acid (Vitamin C) 100 Mg Tablet, 100 TAB PO DAILY, (Reported) Atorvastatin Calcium (Atorvastatin Calcium) 40 Mg Tablet, 40 MG PO DAILY, (Reported) Calcium Carbonate/Vitamin D3 (Calcium 600-Vit D3 200 Tablet) 1 Each Tablet, 1 TAB PO BID, (Reported) Clopidogrel Bisulfate (Plavix) 75 Mg Tablet, 75 MG PO DAILY, (Reported) Levothyroxine Sodium (Synthroid) 88 Mcg Tablet, 88 MCG PO DAILY, (Reported) Metoprolol Succinate (Metoprolol Succinate) 25 Mg Tab.er.24h, 25 MG PO DAILY, (Reported) Multivitamin (Multivitamin) 1 Each Tablet, 1 EACH PO DAILY, (Reported) Omeprazole Magnesium (Prilosec Otc) 20 Mg Tablet.dr, 20 MG PO DAILY, (Reported) Ubidecarenone (Co Q-10) 200 Mg Capsule, 100 MG PO DAILY, (Reported) Scheduled PRN Acetaminophen (Acetaminophen) 325 Mg Tablet, 650 MG PO Q4-6HP PRN for pain or fever, (Reported) Allergies Coded Allergies: Sulfa (Sulfonamide Antibiotics) (Verified Allergy, Intermediate, itching, 05/15/20) A-FIB/CHADSVASC A-FIB History Current/History of A-Fib/PAF?: No Current PO Anticoag Therapy: No BOGDAN MENDOZA MD Oct 06, 2020 16:48
[2020-10-06 17:00] VITALS: BP 118/57
[2020-10-06] MEDS: HumaLOG INSULIN (NovoLOG) PER UNIT SC SCH ×2 (17:39→21:04)
[2020-10-06 20:00] VITALS: BP 127/62
[2020-10-06] MEDS: REMEDY PHYTOPLEX Z-GUARD PASTE 113GM TUBE (FROM STOREROOM PRODUCT) TOP SCH (21:00)
[2020-10-06] MEDS: DOCUSATE SODIUM 100MG CAPSULE PO SCH (21:03)
[2020-10-06] MEDS: SENNA 8.6 MG TAB (SENOKOT) PO SCH (21:03)
[2020-10-07] MEDS: LEVOTHYROXINE 88MCG TABLET (0.088 MG) PO SCH (05:12)
[2020-10-07 05:58] VITALS: BP 115/59
[2020-10-07] MEDS: OMEPRAZOLE 20 MG CAP PO SCH (07:45)
[2020-10-07] MEDS: MAGNESIUM OXIDE 400 MG TAB (MAG-OX) PO SCH (07:45)
[2020-10-07] MEDS: ASPIRIN 81 MG ENTERIC TAB PO SCH (07:45)
[2020-10-07] MEDS: amLODIPine 5 MG TAB PO SCH (07:45)
[2020-10-07] MEDS: ATORVASTATIN 20 MG TAB PO SCH (07:45)
[2020-10-07] MEDS: CLOPIDOGREL 75 MG TAB PO SCH (07:46)
[2020-10-07] MEDS: HumaLOG INSULIN (NovoLOG) PER UNIT SC SCH ×4 (07:46→20:17)
[2020-10-07] MEDS: ENOXAPARIN 40MG/0.4ML SYRINGE (J1650 PER 10MG) SC SCH (07:46)
[2020-10-07] MEDS: DOCUSATE SODIUM 100MG CAPSULE PO SCH ×2 (07:46→20:17)
[2020-10-07] MEDS: METOPROLOL SUCC *XL* 25MG TAB (TopROL *XL*) PO SCH (07:46)
[2020-10-07] MEDS: REMEDY PHYTOPLEX Z-GUARD PASTE 113GM TUBE (FROM STOREROOM PRODUCT) TOP SCH ×3 (07:47→20:17)
[2020-10-07 08:16] LABS: BASO % 0.5 % (0.0-1.0); EOS # 0.2 10^3/uL (0.0-0.5); EOS % 2.6 % (0.0-3.0); HEMATOCRIT 42.4 % (36.0-47.0); HEMOGLOBIN 13.8 g/dl (12.0-15.5); LYMPH # 1.8 10^3/uL (1.5-5.0); LYMPH % 23.3 % (24.0-44.0); MEAN CORPUSCULAR HEMOGLOBIN 29.2 pg (27.0-33.0); MEAN CORPUSCULAR HGB CONC 32.5 g/dl (32.0-36.5); MEAN CORPUSCULAR VOLUME 89.6 fl (80.0-96.0); MONO # 0.9 10^3/uL (0.0-0.8); MONO % 11.6 % (0.0-5.0); NEUTROPHILS # 4.7 10^3/uL (1.5-8.5); NEUTROPHILS % 61.7 % (36.0-66.0); PLATELET COUNT, AUTOMATED 168 10^3/uL (150-450); RED BLOOD COUNT 4.73 10^6/uL (4.00-5.40); WHITE BLOOD COUNT 7.7 10^3/uL (4.0-10.0)
[2020-10-07 08:47] LABS: ALBUMIN 3.3 GM/DL (3.2-5.2); ALT/SGPT 30 U/L (12-78); BILIRUBIN,TOTAL 0.4 MG/DL (0.2-1.0); BLOOD UREA NITROGEN 25 MG/DL (7-18); CALCIUM LEVEL 9.3 MG/DL (8.8-10.2); CARBON DIOXIDE LEVEL 24 MEQ/L (21-32); CHLORIDE LEVEL 108 MEQ/L (98-107); GLOMERULAR FILTRATION RATE > 60.0 (>39); GLUCOSE, FASTING 151 MG/DL (70-100); POTASSIUM SERUM 4.4 MEQ/L (3.5-5.1); SODIUM LEVEL 143 MEQ/L (136-145); TOTAL PROTEIN 5.7 GM/DL (6.4-8.2)
--- NOTE | 2020-10-07 10:11 | IPNPDOC ---
PM&R Progress Note DATE OF SERVICE: Oct 07, 2020 Property Specialist Progress Note Subjective: Patient wondering if her vision will return and feels she is able to compensate, but wants to make sure she is safe to go home. REVIEW OF SYSTEMS: The following is a completed review of systems and has been reviewed. Review of systems otherwise unremarkable. PAIN: Patient self reports no pain EYES: reprot vision loss in her right visual field EARS, NOSE, & THROAT: No throat pain, or dysphagia, or rhinorrhea CARDIOVASCULAR: Denies chest pain or palpitations PULMONARY: Denies shortness of breath GASTROINTESTINAL: Denies constipation/diarrhea GENITOURINARY: denies dysuria MUSCULOSKELETAL: generalized weakness NEUROLOGICAL:+homonymous hemianopsia HEMATOLOGICAL: denies easy bruising SKIN: no rash PSYCHIATRIC: Unremarkable All other review of systems found to be negative. PHYSICAL EXAMINATION: VITAL SIGNS: Please see below. GENERAL: Pleasant and cooperative. No acute distress. HEENT: PERRL. Extraocular movements intact. Clear conjunctiva CARDIOVASCULAR: Regular rate and rhythm. No murmurs, rubs, or gallops LUNGS: Clear to auscultation bilaterally. No wheezes. No rhonchi, s/p right mastectomy ABDOMEN: Soft, nontender, nondistended. Positive bowel sounds. Normal active bowel sounds NEUROLOGICAL: Alert and oriented times three. Cranial nerves II through XII grossly intact. Sensation grossly intact with no notable neglect (-) dysmetria (-) babinksi EXTREMITIES: 5\5 strength bilateral upper extremities. 5\5 strength right lower extremity. 5/5 strength in left lower extremity. SKIN: ASSESSMENT:74-year-old F with past medical history of stroke who presents status post with new stroke symptoms diagnosed with a left occipital infarct with right sided homonymous hemianopsia PLAN: 1. Rehab- PT/OT advance mobility and ADLs, teach compensatory skills for visual deficit, balance training MECHANICAL SUPERVISOR- cog and swallow eval 2. Neuro- hx of stroke with new left occipital ischemic infarct with right sided homymous hemianopsia contributing to significant impairments in moblity -c/u ASA, plavix, and statin -optimize BPs 3. Cardiac- hx of HTN c/u BP meds, medicine consulted to assist in overall management, f/u ECHO results -loop recorder in place 4. Resp- encourage incentive spirometry, monitor for infection 5. Onc- s/p right mastectomy, c/u anastrozole 6. GI ppx- prilosec 7. DVT ppx- lovenox 8. - monitor PVRs 9. Dispo- 2--21 to home, progressing towards goals Allergies Coded Allergies: Sulfa (Sulfonamide Antibiotics) (Verified Allergy, Intermediate, itching, 05/15/20) Vital Signs Vital Signs Date Time Temp Pulse Resp B/P (MAP) Pulse Ox O2 Delivery O2 Flow Rate FiO2 10/07/20 07:46 68 115/59 10/07/20 05:58 98.8 19 94 Room Air Laboratory Data CBC/BMP Laboratory Tests 10/07/20 07:16 Labs 24H Laboratory Tests 2 10/06/20 19:31: Bedside Glucose (Misc Panel) 266H 10/07/20 05:28: Bedside Glucose (Misc Panel) 124H 10/07/20 07:16: Immature Granulocyte % (Auto) 0.3, Neutrophils (%) (Auto) 61.7, Lymphocytes (%) (Auto) 23.3L, Monocytes (%) (Auto) 11.6H, Eosinophils (%) (Auto) 2.6, Basophils (%) (Auto) 0.5, Neutrophils # (Auto) 4.7, Lymphocytes # (Auto) 1.8, Monocytes # (Auto) 0.9H, Eosinophils # (Auto) 0.2, Basophils # (Auto) 0.0, Nucleated Red Blood Cells % (auto) 0.0, Anion Gap 11, Glomerular Filtration Rate > 60.0, Calcium Level 9.3, Total Bilirubin 0.4, Aspartate Amino Transf (AST/SGOT) 15, Alanine Aminotransferase (ALT/SGPT) 30, Alkaline Phosphatase 85, Total Protein 5.7L, Albumin 3.3, Albumin/Globulin Ratio 1.4 Current Medications Current Medications Current Medications Medications (Trade) Dose Ordered Sig/Satish Route PRN Reason Start Time Stop Time Status Last Admin Dose Admin Acetaminophen (Tylenol Tab) 650 mg Q4HP PRN PO fever/MILD PAIN (PS 1-4) 10/06/20 16:45 Al Hydrox/Mg Hydrox/Simethicone (Mylanta) 30 ml Q4HP PRN PO DYSPEPSIA 10/06/20 16:45 Amlodipine Besylate (Norvasc) 5 mg DAILY PO 10/07/20 09:00 10/07/20 07:45 Aspirin (Ecotrin) 81 mg DAILY PO 10/07/20 09:00 10/07/20 07:45 Atorvastatin Calcium (Lipitor) 40 mg DAILY PO 10/07/20 09:00 10/07/20 07:45 Bisacodyl (Dulcolax Suppository) 10 mg DAILYPRN PRN DC CONSTIPATION 10/06/20 16:45 Clopidogrel Bisulfate (PLAVix) 75 mg DAILY PO 10/07/20 09:00 10/07/20 07:46 Dextrose (Dextrose 50%) 25 ml ASDIRECTED PRN IV SEE LABEL COMMENTS 10/06/20 16:45 Docusate Sodium (Colace) 100 mg BID PO 10/06/20 21:00 10/07/20 07:46 Enoxaparin Sodium (Lovenox) 40 mg DAILY SC 10/07/20 09:00 10/07/20 07:46 Glucagon (Glucagon) 1 mg ASDIRECTED PRN SC SEE LABEL COMMENTS 10/06/20 16:45 Glucose (Glucose) 16 GM ASDIRECTED PRN PO SEE LABEL COMMENTS 10/06/20 16:45 Insulin Human Lispro (HumaLOG INSULIN) SEE PROTOCOL TABLE AC SC 10/06/20 17:30 10/07/20 07:46 Insulin Human Lispro (HumaLOG INSULIN) SEE PROTOCOL TABLE QHS SC 10/06/20 21:00 10/06/20 21:04 Levothyroxine Sodium (Synthroid) 88 mcg DAILY@06 PO 10/07/20 06:00 10/07/20 05:12 Magnesium Oxide (Mag-Ox) 400 mg DAILY PO 10/07/20 09:00 10/07/20 07:45 Metoprolol Succinate (TopROL XL) 25 mg DAILY PO 10/07/20 09:00 10/07/20 07:46 Miscellaneous (Unresolved Patient Own Med Order) SEE LABEL COMMENTS DAILY XX 10/06/20 09:00 Omeprazole (PriLOSEC) 20 mg DAILY PO 10/07/20 09:00 10/07/20 07:45 Patient Own Medication (Patient'S Own Med) anastrozole 1mg po daily DAILY PO 10/07/20 09:00 UNV Senna (Senokot) 1 tab QHS PO 10/06/20 21:00 1/25/21 21:03 BODGAN MENDOZA MD Oct 07, 2020 10:11
[2020-10-07 14:00] VITALS: BP 130/62
--- NOTE | 2020-10-07 14:21 | IPNPDOC ---
Text Note Date of Service The patient was seen on 10/07/20. NOTE Subjective: Patient is a 74-year-old female with a PMHx of HTN, Hx of CVA, Hypothyroidism, Migraines, Breast CA s/p R mastectomy [facility]. Over the course of the week. Patient has been complaining of worsening of her migraine headaches and seems forgetful. Patient was brought to the emergency room for further evaluation and treatment. Patient was seen and examined at the bedside. Currently patient denies any chest pain, shortness breath, palpitations, nausea, vomiting, abdominal pain, diarrhea, or urinary discomfort. Objective: Vitals (See below) General: Lying in bed, no acute distress, comfortable, Awake / Alert HEENT: NC, AT CVS: RRR, +S1S2 Lungs: Fair air entry b/l, -w/r/r Abdomen: Soft, ND, NT Extremities: - Edema, - Calf tenderness Neuro: 5/5 strength at upper / lower extremities bilaterally Assessment and plan: Confusion & visual field deficits 2/2 subacute posterior CVAs - Currently reports improvement of her symptoms - Lipid panel noted - CT head 10/03: Minimal chronic ischemic white matter change and atrophy with areas of old infarct involving the right parietal lobe and to a lesser degree the paramedian left occipital lobe. - CTA neck 10/03: 1. No stenosis or dissection. 2. Nodular lesion at the vallecula on the right measures 1 cm. Endoscopic evaluation may be considered. - CTA head 10/03: Severe distal left NETWORK DESKTOP SUPPORT SPECIALIST P2 stenosis. - MRI brain 10/04: Early subacute left NETWORK DESKTOP SUPPORT SPECIALIST ischemic infarct. - c/w PT and OT as per ARU - Case was initially discussed with neurology was consulted; ASA added to Plavix and Statin therapy HTN - BP well controlled - c/w amlodipine, metoprolol Hypothyroidism - c/w levothyroxine Breast cancer - c/w Anastrozole GERD - c/w Omeprazole DVT prophylaxis - c/w Lovenox VS,Fishbone, I+O VS, Fishbone, I+O Laboratory Tests 10/07/20 07:16 Vital Signs Date Time Temp Pulse Resp B/P (MAP) Pulse Ox O2 Delivery O2 Flow Rate FiO2 10/07/20 07:46 68 115/59 10/07/20 05:58 98.8 19 94 Room Air I&O- Last 24 Hours up to 6 AM 10/07/20 05:59 Intake Total 420 ml Balance 420 ml ELIN JOHNSON MD Oct 07, 2020 14:21
[2020-10-07 20:00] VITALS: BP 136/63
[2020-10-07] MEDS: SENNA 8.6 MG TAB (SENOKOT) PO SCH (20:17)
[2020-10-08] MEDS: LEVOTHYROXINE 88MCG TABLET (0.088 MG) PO SCH (05:34)
[2020-10-08 06:00] VITALS: BP 156/72
[2020-10-08] MEDS: ATORVASTATIN 20 MG TAB PO SCH (07:14)
[2020-10-08] MEDS: CLOPIDOGREL 75 MG TAB PO SCH (07:14)
[2020-10-08] MEDS: OMEPRAZOLE 20 MG CAP PO SCH (07:14)
[2020-10-08] MEDS: ASPIRIN 81 MG ENTERIC TAB PO SCH (07:14)
[2020-10-08] MEDS: amLODIPine 5 MG TAB PO SCH (07:14)
[2020-10-08] MEDS: MAGNESIUM OXIDE 400 MG TAB (MAG-OX) PO SCH (07:14)
[2020-10-08] MEDS: METOPROLOL SUCC *XL* 25MG TAB (TopROL *XL*) PO SCH (07:15)
[2020-10-08] MEDS: HumaLOG INSULIN (NovoLOG) PER UNIT SC SCH ×4 (07:15→20:42)
[2020-10-08] MEDS: DOCUSATE SODIUM 100MG CAPSULE PO SCH ×2 (07:15→20:42)
[2020-10-08] MEDS: ENOXAPARIN 40MG/0.4ML SYRINGE (J1650 PER 10MG) SC SCH (07:16)
[2020-10-08] MEDS: REMEDY PHYTOPLEX Z-GUARD PASTE 113GM TUBE (FROM STOREROOM PRODUCT) TOP SCH ×3 (07:16→20:43)
--- NOTE | 2020-10-08 08:27 | IPNPDOC ---
PM&R Progress Note DATE OF SERVICE: Oct 08, 2020 Tobacco Cutter Progress Note Subjective: PAtient seen in therapy working on balance training, stating she feels steadier on her feet and is hoping a week in rehab will be enough for her to go home alone. REVIEW OF SYSTEMS: The following is a completed review of systems and has been reviewed. Review of systems otherwise unremarkable. PAIN: Patient self reports no pain EYES: reprot vision loss in her right visual field EARS, NOSE, & THROAT: No throat pain, or dysphagia, or rhinorrhea CARDIOVASCULAR: Denies chest pain or palpitations PULMONARY: Denies shortness of breath GASTROINTESTINAL: Denies constipation/diarrhea GENITOURINARY: denies dysuria MUSCULOSKELETAL: generalized weakness NEUROLOGICAL:+homonymous hemianopsia HEMATOLOGICAL: denies easy bruising SKIN: no rash PSYCHIATRIC: Unremarkable All other review of systems found to be negative. PHYSICAL EXAMINATION: VITAL SIGNS: Please see below. GENERAL: Pleasant and cooperative. No acute distress. HEENT: PERRL. Extraocular movements intact. Clear conjunctiva CARDIOVASCULAR: Regular rate and rhythm. No murmurs, rubs, or gallops LUNGS: Clear to auscultation bilaterally. No wheezes. No rhonchi, s/p right mastectomy ABDOMEN: Soft, nontender, nondistended. Positive bowel sounds. Normal active bowel sounds NEUROLOGICAL: Alert and oriented times three. Cranial nerves II through XII grossly intact. Sensation grossly intact with no notable neglect (-) dysmetria (-) babinksi EXTREMITIES: 5\5 strength bilateral upper extremities. 5\5 strength right lower extremity. 5/5 strength in left lower extremity. SKIN: ASSESSMENT:74-year-old F with past medical history of stroke who presents status post with new stroke symptoms diagnosed with a left occipital infarct with right sided homonymous hemianopsia PLAN: 1. Rehab- PT/OT advance mobility and ADLs, teach compensatory skills for visual deficit, balance training CAGE CASHIER- cog and swallow eval 2. Neuro- hx of stroke with new left occipital ischemic infarct with right sided homymous hemianopsia contributing to significant impairments in moblity -c/u ASA, plavix, and statin -optimize BPs 3. Cardiac- hx of HTN c/u BP meds, medicine consulted to assist in overall management, f/u ECHO results -loop recorder in place 4. Resp- encourage incentive spirometry, monitor for infection 5. Onc- s/p right mastectomy, c/u anastrozole 6. GI ppx- prilosec 7. DVT ppx- lovenox 8. - monitor PVRs 9. Dispo- 2-11-02 to home, progressing towards goals Allergies Coded Allergies: Sulfa (Sulfonamide Antibiotics) (Verified Allergy, Intermediate, itching, 05/15/20) Vital Signs Vital Signs Date Time Temp Pulse Resp B/P (MAP) Pulse Ox O2 Delivery O2 Flow Rate FiO2 10/08/20 07:15 58 156/72 10/08/20 06:00 98.5 18 99 Room Air Laboratory Data Labs 24H Laboratory Tests 2 10/07/20 11:47: Bedside Glucose (Misc Panel) 181H 10/07/20 16:41: Bedside Glucose (Misc Panel) 145H 10/07/20 19:29: Bedside Glucose (Misc Panel) 189H 10/08/20 05:23: Bedside Glucose (Misc Panel) 141H Current Medications Current Medications Current Medications Medications (Trade) Dose Ordered Sig/Satish Route PRN Reason Start Time Stop Time Status Last Admin Dose Admin Acetaminophen (Tylenol Tab) 650 mg Q4HP PRN PO fever/MILD PAIN (PS 1-4) 10/06/20 16:45 Al Hydrox/Mg Hydrox/Simethicone (Mylanta) 30 ml Q4HP PRN PO DYSPEPSIA 10/06/20 16:45 Amlodipine Besylate (Norvasc) 5 mg DAILY PO 10/07/20 09:00 10/08/20 07:14 Aspirin (Ecotrin) 81 mg DAILY PO 10/07/20 09:00 10/08/20 07:14 Atorvastatin Calcium (Lipitor) 40 mg DAILY PO 10/07/20 09:00 10/08/20 07:14 Bisacodyl (Dulcolax Suppository) 10 mg DAILYPRN PRN MS CONSTIPATION 10/06/20 16:45 Clopidogrel Bisulfate (PLAVix) 75 mg DAILY PO 10/07/20 09:00 10/08/20 07:14 Dextrose (Dextrose 50%) 25 ml ASDIRECTED PRN IV SEE LABEL COMMENTS 10/06/20 16:45 Docusate Sodium (Colace) 100 mg BID PO 10/06/20 21:00 10/07/20 20:17 Enoxaparin Sodium (Lovenox) 40 mg DAILY SC 10/07/20 09:00 10/08/20 07:16 Glucagon (Glucagon) 1 mg ASDIRECTED PRN SC SEE LABEL COMMENTS 10/06/20 16:45 Glucose (Glucose) 16 GM ASDIRECTED PRN PO SEE LABEL COMMENTS 10/06/20 16:45 Insulin Human Lispro (HumaLOG INSULIN) SEE PROTOCOL TABLE AC SC 10/06/20 17:30 10/08/20 07:15 Insulin Human Lispro (HumaLOG INSULIN) SEE PROTOCOL TABLE QHS SC 10/06/20 21:00 10/06/20 21:04 Levothyroxine Sodium (Synthroid) 88 mcg DAILY@06 PO 10/07/20 06:00 10/08/20 05:34 Magnesium Oxide (Mag-Ox) 400 mg DAILY PO 10/07/20 09:00 10/08/20 07:14 Metoprolol Succinate (TopROL XL) 25 mg DAILY PO 10/07/20 09:00 10/07/20 07:46 Miscellaneous (Unresolved Patient Own Med Order) SEE LABEL COMMENTS DAILY XX 10/06/20 09:00 Omeprazole (PriLOSEC) 20 mg DAILY PO 10/07/20 09:00 10/08/20 07:14 Patient Own Medication (Patient'S Own Med) anastrozole 1mg po daily DAILY PO 10/07/20 09:00 UNV Senna (Senokot) 1 tab QHS PO 10/06/20 21:00 10/07/20 20:17 BOGDAN MENDOZA MD Oct 08, 2020 08:27
[2020-10-08 08:56] LABS: BASO % 0.4 % (0.0-1.0); EOS # 0.2 10^3/uL (0.0-0.5); HEMATOCRIT 44.1 % (36.0-47.0); HEMOGLOBIN 14.2 g/dl (12.0-15.5); LYMPH # 1.6 10^3/uL (1.5-5.0); LYMPH % 23.5 % (24.0-44.0); MEAN CORPUSCULAR HEMOGLOBIN 29.2 pg (27.0-33.0); MEAN CORPUSCULAR HGB CONC 32.2 g/dl (32.0-36.5); MEAN CORPUSCULAR VOLUME 90.7 fl (80.0-96.0); MONO # 0.7 10^3/uL (0.0-0.8); MONO % 9.9 % (0.0-5.0); NEUTROPHILS # 4.2 10^3/uL (1.5-8.5); NEUTROPHILS % 62.9 % (36.0-66.0); PLATELET COUNT, AUTOMATED 176 10^3/uL (150-450); RED BLOOD COUNT 4.86 10^6/uL (4.00-5.40); WHITE BLOOD COUNT 6.7 10^3/uL (4.0-10.0)
[2020-10-08 09:25] LABS: BLOOD UREA NITROGEN 21 MG/DL (7-18); CALCIUM LEVEL 9.6 MG/DL (8.8-10.2); CARBON DIOXIDE LEVEL 28 MEQ/L (21-32); CHLORIDE LEVEL 105 MEQ/L (98-107); CREATININE FOR GFR 0.96 MG/DL (0.55-1.30); GLOMERULAR FILTRATION RATE > 60.0 (>39); GLUCOSE, FASTING 206 MG/DL (70-100); POTASSIUM SERUM 3.9 MEQ/L (3.5-5.1); SODIUM LEVEL 142 MEQ/L (136-145)
[2020-10-08 14:00] VITALS: BP 122/69
[2020-10-08 20:00] VITALS: BP 125/61
[2020-10-08] MEDS: SENNA 8.6 MG TAB (SENOKOT) PO SCH (20:42)
[2020-10-09] MEDS: LEVOTHYROXINE 88MCG TABLET (0.088 MG) PO SCH (05:50)
[2020-10-09 06:00] VITALS: BP 115/59
[2020-10-09] MEDS: HumaLOG INSULIN (NovoLOG) PER UNIT SC SCH ×4 (08:28→21:00)
[2020-10-09] MEDS: amLODIPine 5 MG TAB PO SCH (08:31)
[2020-10-09] MEDS: METOPROLOL SUCC *XL* 25MG TAB (TopROL *XL*) PO SCH (08:32)
[2020-10-09] MEDS: MAGNESIUM OXIDE 400 MG TAB (MAG-OX) PO SCH (08:32)
[2020-10-09] MEDS: ASPIRIN 81 MG ENTERIC TAB PO SCH (08:32)
[2020-10-09] MEDS: CLOPIDOGREL 75 MG TAB PO SCH (08:32)
[2020-10-09] MEDS: DOCUSATE SODIUM 100MG CAPSULE PO SCH ×2 (08:32→21:03)
[2020-10-09] MEDS: ENOXAPARIN 40MG/0.4ML SYRINGE (J1650 PER 10MG) SC SCH (08:32)
[2020-10-09] MEDS: OMEPRAZOLE 20 MG CAP PO SCH (08:32)
[2020-10-09] MEDS: ATORVASTATIN 20 MG TAB PO SCH (08:32)
[2020-10-09] MEDS: REMEDY PHYTOPLEX Z-GUARD PASTE 113GM TUBE (FROM STOREROOM PRODUCT) TOP SCH ×3 (08:33→21:04)
--- NOTE | 2020-10-09 09:25 | IPNPDOC ---
PM&R Progress Note DATE OF SERVICE: Oct 09, 2020 Underwriting Clerks Supervisor Progress Note Subjective: PAtient has no new complaints, she is happy to be off her anastrozole. She is wondering if she can drive with her vision impairment and was instructed not to drive, but to consider enrolling in a driving rehab program. REVIEW OF SYSTEMS: The following is a completed review of systems and has been reviewed. Review of systems otherwise unremarkable. PAIN: Patient self reports no pain EYES: reprot vision loss in her right visual field EARS, NOSE, & THROAT: No throat pain, or dysphagia, or rhinorrhea CARDIOVASCULAR: Denies chest pain or palpitations PULMONARY: Denies shortness of breath GASTROINTESTINAL: Denies constipation/diarrhea GENITOURINARY: denies dysuria MUSCULOSKELETAL: generalized weakness NEUROLOGICAL:+homonymous hemianopsia HEMATOLOGICAL: denies easy bruising SKIN: no rash PSYCHIATRIC: Unremarkable All other review of systems found to be negative. PHYSICAL EXAMINATION: VITAL SIGNS: Please see below. GENERAL: Pleasant and cooperative. No acute distress. HEENT: PERRL. Extraocular movements intact. Clear conjunctiva CARDIOVASCULAR: Regular rate and rhythm. No murmurs, rubs, or gallops LUNGS: Clear to auscultation bilaterally. No wheezes. No rhonchi, s/p right mastectomy ABDOMEN: Soft, nontender, nondistended. Positive bowel sounds. Normal active bowel sounds NEUROLOGICAL: Alert and oriented times three. Cranial nerves II through XII grossly intact. Sensation grossly intact with no notable neglect (-) dysmetria (-) babinksi EXTREMITIES: 5\5 strength bilateral upper extremities. 5\5 strength right lower extremity. 5/5 strength in left lower extremity. SKIN: ASSESSMENT:74-year-old F with past medical history of stroke who presents status post with new stroke symptoms diagnosed with a left occipital infarct with right sided homonymous hemianopsia PLAN: 1. Rehab- PT/OT advance mobility and ADLs, teach compensatory skills for visual deficit, balance training [employer]- cog and swallow eval 2. Neuro- hx of stroke with new left occipital ischemic infarct with right sided homonymous hemianopsia contributing to significant impairments in moblity -c/u ASA, plavix, and statin -optimize BPs 3. Cardiac- hx of HTN c/u BP meds, medicine consulted to assist in overall management, f/u ECHO results -loop recorder in place 4. Resp- encourage incentive spirometry, monitor for infection 5. Onc- s/p right mastectomy, will stop anastrozole as patient and patient's PMD concerned this may have contributed to stroke 6. GI ppx- prilosec 7. DVT ppx- lovenox 8. - monitor PVRs 9. Dispo- -11-02 to home, progressing towards goals Allergies Coded Allergies: Sulfa (Sulfonamide Antibiotics) (Verified Allergy, Intermediate, itching, 05/15/20) Vital Signs Vital Signs Date Time Temp Pulse Resp B/P (MAP) Pulse Ox O2 Delivery O2 Flow Rate FiO2 10/09/20 08:31 68 119/62 10/09/20 06:00 97.2 18 96 Room Air Laboratory Data Labs 24H Laboratory Tests 2 10/08/20 11:28: Bedside Glucose (Misc Panel) 129H 10/08/20 16:22: Bedside Glucose (Misc Panel) 191H 10/08/20 20:38: Bedside Glucose (Misc Panel) 261H 10/09/20 06:47: Bedside Glucose (Misc Panel) 147H Current Medications Current Medications Current Medications Medications (Trade) Dose Ordered Sig/Satish Route PRN Reason Start Time Stop Time Status Last Admin Dose Admin Acetaminophen (Tylenol Tab) 650 mg Q4HP PRN PO fever/MILD PAIN (PS 1-4) 10/06/20 16:45 Al Hydrox/Mg Hydrox/Simethicone (Mylanta) 30 ml Q4HP PRN PO DYSPEPSIA 10/06/20 16:45 Amlodipine Besylate (Norvasc) 5 mg DAILY PO 10/07/20 09:00 10/09/20 08:31 Aspirin (Ecotrin) 81 mg DAILY PO 10/07/20 09:00 10/09/20 08:32 Atorvastatin Calcium (Lipitor) 40 mg DAILY PO 10/07/20 09:00 10/09/20 08:32 Bisacodyl (Dulcolax Suppository) 10 mg DAILYPRN PRN [place] CONSTIPATION 10/06/20 16:45 Clopidogrel Bisulfate (PLAVix) 75 mg DAILY PO 10/07/20 09:00 10/09/20 08:32 Dextrose (Dextrose 50%) 25 ml ASDIRECTED PRN IV SEE LABEL COMMENTS 10/06/20 16:45 Docusate Sodium (Colace) 100 mg BID PO 10/06/20 21:00 10/09/20 08:32 Enoxaparin Sodium (Lovenox) 40 mg DAILY SC 10/07/20 09:00 10/09/20 08:32 Glucagon (Glucagon) 1 mg ASDIRECTED PRN SC SEE LABEL COMMENTS 10/06/20 16:45 Glucose (Glucose) 16 GM ASDIRECTED PRN PO SEE LABEL COMMENTS 10/06/20 16:45 Insulin Human Lispro (HumaLOG INSULIN) SEE PROTOCOL TABLE AC SC 10/06/20 17:30 10/09/20 08:28 Insulin Human Lispro (HumaLOG INSULIN) SEE PROTOCOL TABLE QHS SC 10/06/20 21:00 10/08/20 20:42 Levothyroxine Sodium (Synthroid) 88 mcg DAILY@06 PO 10/07/20 06:00 10/09/20 05:50 Magnesium Oxide (Mag-Ox) 400 mg DAILY PO 10/07/20 09:00 10/09/20 08:32 Metoprolol Succinate (TopROL XL) 25 mg DAILY PO 10/07/20 09:00 10/09/20 08:32 Miscellaneous (Unresolved Patient Own Med Order) SEE LABEL COMMENTS DAILY XX 10/06/20 09:00 10/08/20 11:27 DC Omeprazole (PriLOSEC) 20 mg DAILY PO 10/07/20 09:00 10/09/20 08:32 Patient Own Medication (Patient'S Own Med) anastrozole 1mg po daily DAILY PO 10/07/20 09:00 10/08/20 11:26 DC Senna (Senokot) 1 tab QHS PO 10/06/20 21:00 10/08/20 20:42 BOGDAN MENDOZA MD Oct 09, 2020 09:25
[2020-10-09 14:00] VITALS: BP 143/70
[2020-10-09 20:00] VITALS: BP 137/63
[2020-10-09] MEDS: SENNA 8.6 MG TAB (SENOKOT) PO SCH (21:04)
[2020-10-10] MEDS: LEVOTHYROXINE 88MCG TABLET (0.088 MG) PO SCH (05:21)
[2020-10-10 06:00] VITALS: BP 137/60
[2020-10-10] MEDS: MAGNESIUM OXIDE 400 MG TAB (MAG-OX) PO SCH (07:34)
[2020-10-10] MEDS: ATORVASTATIN 20 MG TAB PO SCH (07:34)
[2020-10-10] MEDS: CLOPIDOGREL 75 MG TAB PO SCH (07:34)
[2020-10-10] MEDS: amLODIPine 5 MG TAB PO SCH (07:34)
[2020-10-10] MEDS: OMEPRAZOLE 20 MG CAP PO SCH (07:34)
[2020-10-10] MEDS: DOCUSATE SODIUM 100MG CAPSULE PO SCH ×2 (07:34→20:26)
[2020-10-10] MEDS: HumaLOG INSULIN (NovoLOG) PER UNIT SC SCH ×4 (07:35→20:27)
[2020-10-10] MEDS: ASPIRIN 81 MG ENTERIC TAB PO SCH (07:35)
[2020-10-10] MEDS: METOPROLOL SUCC *XL* 25MG TAB (TopROL *XL*) PO SCH (07:35)
[2020-10-10] MEDS: ENOXAPARIN 40MG/0.4ML SYRINGE (J1650 PER 10MG) SC SCH (07:35)
[2020-10-10] MEDS: REMEDY PHYTOPLEX Z-GUARD PASTE 113GM TUBE (FROM STOREROOM PRODUCT) TOP SCH ×3 (07:35→20:27)
[2020-10-10 07:48] LABS: BASO % 0.3 % (0.0-1.0); EOS # 0.2 10^3/uL (0.0-0.5); EOS % 2.4 % (0.0-3.0); HEMATOCRIT 43.3 % (36.0-47.0); HEMOGLOBIN 14.1 g/dl (12.0-15.5); LYMPH # 1.9 10^3/uL (1.5-5.0); LYMPH % 26.2 % (24.0-44.0); MEAN CORPUSCULAR HGB CONC 32.6 g/dl (32.0-36.5); MEAN CORPUSCULAR VOLUME 88.9 fl (80.0-96.0); MONO # 0.8 10^3/uL (0.0-0.8); MONO % 11.4 % (0.0-5.0); NEUTROPHILS # 4.3 10^3/uL (1.5-8.5); NEUTROPHILS % 59.4 % (36.0-66.0); PLATELET COUNT, AUTOMATED 182 10^3/uL (150-450); RED BLOOD COUNT 4.87 10^6/uL (4.00-5.40); WHITE BLOOD COUNT 7.2 10^3/uL (4.0-10.0)
[2020-10-10 08:05] LABS: BLOOD UREA NITROGEN 20 MG/DL (7-18); CALCIUM LEVEL 9.6 MG/DL (8.8-10.2); CARBON DIOXIDE LEVEL 29 MEQ/L (21-32); CHLORIDE LEVEL 105 MEQ/L (98-107); CREATININE FOR GFR 0.94 MG/DL (0.55-1.30); GLOMERULAR FILTRATION RATE > 60.0 (>39); GLUCOSE, FASTING 192 MG/DL (70-100); POTASSIUM SERUM 4.4 MEQ/L (3.5-5.1); SODIUM LEVEL 141 MEQ/L (136-145)
--- NOTE | 2020-10-10 10:44 | IPNPDOC ---
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 REVIEW OF SYSTEMS: The following is a completed review of systems and has been reviewed. Review of systems otherwise unremarkable. PAIN: Patient self reports no pain EYES: reprot vision loss in her right visual field EARS, NOSE, & THROAT: No throat pain, or dysphagia, or rhinorrhea CARDIOVASCULAR: Denies chest pain or palpitations PULMONARY: Denies shortness of breath GASTROINTESTINAL: Denies constipation/diarrhea GENITOURINARY: denies dysuria MUSCULOSKELETAL: generalized weakness NEUROLOGICAL:+homonymous hemianopsia HEMATOLOGICAL: denies easy bruising SKIN: no rash PSYCHIATRIC: Unremarkable All other review of systems found to be negative. PHYSICAL EXAMINATION: VITAL SIGNS: Please see below. GENERAL: Pleasant and cooperative. No acute distress. HEENT: PERRL. Extraocular movements intact. Clear conjunctiva CARDIOVASCULAR: Regular rate and rhythm. No murmurs, rubs, or gallops LUNGS: Clear to auscultation bilaterally. No wheezes. No rhonchi, s/p right mastectomy ABDOMEN: Soft, nontender, nondistended. Positive bowel sounds. Normal active bowel sounds NEUROLOGICAL: Alert and oriented times three. Cranial nerves II through XII grossly intact. Sensation grossly intact with no notable neglect (-) dysmetria (-) babinksi EXTREMITIES: 5\5 strength bilateral upper extremities. 5\5 strength right lower extremity. 5/5 strength in left lower extremity. SKIN: ASSESSMENT:74-year-old F with past medical history of stroke who presents status post with new stroke symptoms diagnosed with a left occipital infarct with right sided homonymous hemianopsia PLAN: 1. Rehab- PT/OT advance mobility and ADLs, teach compensatory skills for visual deficit, balance training [employer]- cog and swallow eval 2. Neuro- hx of stroke with new left occipital ischemic infarct with right sided homonymous hemianopsia contributing to significant impairments in moblity -c/u ASA, plavix, and statin -optimize BPs 3. Cardiac- hx of HTN c/u BP meds, medicine consulted to assist in overall management, f/u ECHO results -loop recorder in place 4. Resp- encourage incentive spirometry, monitor for infection 5. Onc- s/p right mastectomy, will stop anastrozole as patient and patient's PMD concerned this may have contributed to stroke 6. GI ppx- prilosec 7. DVT ppx- lovenox 8. - monitor PVRs 9. Dispo- 2-11-02 to home, progressing towards goals Allergies Coded Allergies: Sulfa (Sulfonamide Antibiotics) (Verified Allergy, Intermediate, itching, 05/15/20) Vital Signs Vital Signs Date Time Temp Pulse Resp B/P (MAP) Pulse Ox O2 Delivery O2 Flow Rate FiO2 10/10/20 07:35 64 137/60 10/10/20 06:00 97.7 18 99 Room Air Laboratory Data CBC/BMP Laboratory Tests 10/10/20 07:21 Labs 24H Laboratory Tests 2 10/09/20 11:07: Bedside Glucose (Misc Panel) 116H 10/09/20 16:17: Bedside Glucose (Misc Panel) 156H 10/09/20 20:58: Bedside Glucose (Misc Panel) 248H 10/10/20 06:27: Bedside Glucose (Misc Panel) 158H 10/10/20 07:21: Immature Granulocyte % (Auto) 0.3, Neutrophils (%) (Auto) 59.4, Lymphocytes (%) (Auto) 26.2, Monocytes (%) (Auto) 11.4H, Eosinophils (%) (Auto) 2.4, Basophils (%) (Auto) 0.3, Neutrophils # (Auto) 4.3, Lymphocytes # (Auto) 1.9, Monocytes # (Auto) 0.8, Eosinophils # (Auto) 0.2, Basophils # (Auto) 0.0, Nucleated Red Blood Cells % (auto) 0.0, Anion Gap 7L, Glomerular Filtration Rate > 60.0, Calcium Level 9.6 Current Medications Current Medications Current Medications Medications (Trade) Dose Ordered Sig/Satish Route PRN Reason Start Time Stop Time Status Last Admin Dose Admin Acetaminophen (Tylenol Tab) 650 mg Q4HP PRN PO fever/MILD PAIN (PS 1-4) 10/06/20 16:45 Al Hydrox/Mg Hydrox/Simethicone (Mylanta) 30 ml Q4HP PRN PO DYSPEPSIA 10/06/20 16:45 Amlodipine Besylate (Norvasc) 5 mg DAILY PO 10/07/20 09:00 10/10/20 07:34 Aspirin (Ecotrin) 81 mg DAILY PO 10/07/20 09:00 10/10/20 07:35 Atorvastatin Calcium (Lipitor) 40 mg DAILY PO 10/07/20 09:00 10/10/20 07:34 Bisacodyl (Dulcolax Suppository) 10 mg DAILYPRN PRN [place] CONSTIPATION 10/06/20 16:45 Clopidogrel Bisulfate (PLAVix) 75 mg DAILY PO 10/07/20 09:00 10/10/20 07:34 Dextrose (Dextrose 50%) 25 ml ASDIRECTED PRN IV SEE LABEL COMMENTS 10/06/20 16:45 Docusate Sodium (Colace) 100 mg BID PO 10/06/20 21:00 10/10/20 07:34 Enoxaparin Sodium (Lovenox) 40 mg DAILY SC 10/07/20 09:00 10/10/20 07:35 Glucagon (Glucagon) 1 mg ASDIRECTED PRN SC SEE LABEL COMMENTS 10/06/20 16:45 Glucose (Glucose) 16 GM ASDIRECTED PRN PO SEE LABEL COMMENTS 10/06/20 16:45 Insulin Human Lispro (HumaLOG INSULIN) SEE PROTOCOL TABLE AC SC 10/06/20 17:30 10/10/20 07:35 Insulin Human Lispro (HumaLOG INSULIN) SEE PROTOCOL TABLE QHS SC 10/06/20 21:00 10/08/20 20:42 Levothyroxine Sodium (Synthroid) 88 mcg DAILY@06 PO 10/07/20 06:00 10/10/20 05:21 Magnesium Oxide (Mag-Ox) 400 mg DAILY PO 10/07/20 09:00 10/10/20 07:34 Metoprolol Succinate (TopROL XL) 25 mg DAILY PO 10/07/20 09:00 10/10/20 07:35 Miscellaneous (Unresolved Patient Own Med Order) SEE LABEL COMMENTS DAILY XX 10/06/20 09:00 10/08/20 11:27 DC Omeprazole (PriLOSEC) 20 mg DAILY PO 10/07/20 09:00 10/10/20 07:34 Patient Own Medication (Patient'S Own Med) anastrozole 1mg po daily DAILY PO 10/07/20 09:00 10/08/20 11:26 DC Senna (Senokot) 1 tab QHS PO 10/06/20 21:00 10/09/20 21:04 BOGDAN MENDOZA MD Oct 10, 2020 10:44
[2020-10-10 14:00] VITALS: BP 137/66
[2020-10-10 20:00] VITALS: BP 132/62
[2020-10-10] MEDS: SENNA 8.6 MG TAB (SENOKOT) PO SCH (20:26)
[2020-10-11 05:28] VITALS: BP 143/65
[2020-10-11] MEDS: LEVOTHYROXINE 88MCG TABLET (0.088 MG) PO SCH (05:29)
[2020-10-11] MEDS: ASPIRIN 81 MG ENTERIC TAB PO SCH (07:24)
[2020-10-11] MEDS: metFORMIN (GLUCOPHAGE) 500 MG TAB PO SCH (07:24)
[2020-10-11] MEDS: DOCUSATE SODIUM 100MG CAPSULE PO SCH ×2 (07:25→20:17)
[2020-10-11] MEDS: CLOPIDOGREL 75 MG TAB PO SCH (07:25)
[2020-10-11] MEDS: METOPROLOL SUCC *XL* 25MG TAB (TopROL *XL*) PO SCH (07:25)
[2020-10-11] MEDS: amLODIPine 5 MG TAB PO SCH (07:25)
[2020-10-11] MEDS: OMEPRAZOLE 20 MG CAP PO SCH (07:25)
[2020-10-11] MEDS: MAGNESIUM OXIDE 400 MG TAB (MAG-OX) PO SCH (07:25)
[2020-10-11] MEDS: ATORVASTATIN 20 MG TAB PO SCH (07:25)
[2020-10-11] MEDS: HumaLOG INSULIN (NovoLOG) PER UNIT SC SCH ×4 (07:26→20:18)
[2020-10-11] MEDS: REMEDY PHYTOPLEX Z-GUARD PASTE 113GM TUBE (FROM STOREROOM PRODUCT) TOP SCH ×3 (07:26→20:18)
[2020-10-11] MEDS: ENOXAPARIN 40MG/0.4ML SYRINGE (J1650 PER 10MG) SC SCH (07:26)
[2020-10-11 14:00] VITALS: BP 128/62
[2020-10-11 20:00] VITALS: BP 131/65
[2020-10-11] MEDS: SENNA 8.6 MG TAB (SENOKOT) PO SCH (20:17)
[2020-10-12 05:34] VITALS: BP 134/64
[2020-10-12] MEDS: LEVOTHYROXINE 88MCG TABLET (0.088 MG) PO SCH (05:56)
[2020-10-12] MEDS: OMEPRAZOLE 20 MG CAP PO SCH (08:16)
[2020-10-12] MEDS: HumaLOG INSULIN (NovoLOG) PER UNIT SC SCH ×4 (08:16→21:00)
[2020-10-12] MEDS: ASPIRIN 81 MG ENTERIC TAB PO SCH (08:16)
[2020-10-12] MEDS: CLOPIDOGREL 75 MG TAB PO SCH (08:17)
[2020-10-12] MEDS: MAGNESIUM OXIDE 400 MG TAB (MAG-OX) PO SCH (08:17)
[2020-10-12] MEDS: ATORVASTATIN 20 MG TAB PO SCH (08:17)
[2020-10-12] MEDS: metFORMIN (GLUCOPHAGE) 500 MG TAB PO SCH (08:17)
[2020-10-12] MEDS: DOCUSATE SODIUM 100MG CAPSULE PO SCH ×2 (08:17→21:18)
[2020-10-12] MEDS: METOPROLOL SUCC *XL* 25MG TAB (TopROL *XL*) PO SCH (08:18)
[2020-10-12] MEDS: amLODIPine 5 MG TAB PO SCH (08:18)
[2020-10-12] MEDS: ENOXAPARIN 40MG/0.4ML SYRINGE (J1650 PER 10MG) SC SCH (08:18)
[2020-10-12] MEDS: REMEDY PHYTOPLEX Z-GUARD PASTE 113GM TUBE (FROM STOREROOM PRODUCT) TOP SCH ×3 (08:18→21:19)
[2020-10-12 14:00] VITALS: BP 122/71
[2020-10-12 20:00] VITALS: BP 144/66
[2020-10-12] MEDS: SENNA 8.6 MG TAB (SENOKOT) PO SCH (21:17)
[2020-10-13 06:00] VITALS: BP 125/70
[2020-10-13] MEDS: LEVOTHYROXINE 88MCG TABLET (0.088 MG) PO SCH (06:42)
[2020-10-13 07:07] LABS: BASO % 0.4 % (0.0-1.0); EOS # 0.2 10^3/uL (0.0-0.5); EOS % 2.8 % (0.0-3.0); HEMATOCRIT 39.9 % (36.0-47.0); HEMOGLOBIN 12.7 g/dl (12.0-15.5); LYMPH # 1.9 10^3/uL (1.5-5.0); LYMPH % 26.6 % (24.0-44.0); MEAN CORPUSCULAR HEMOGLOBIN 28.4 pg (27.0-33.0); MEAN CORPUSCULAR HGB CONC 31.8 g/dl (32.0-36.5); MEAN CORPUSCULAR VOLUME 89.3 fl (80.0-96.0); MONO # 0.8 10^3/uL (0.0-0.8); MONO % 10.8 % (0.0-5.0); NEUTROPHILS # 4.1 10^3/uL (1.5-8.5); PLATELET COUNT, AUTOMATED 173 10^3/uL (150-450); RED BLOOD COUNT 4.47 10^6/uL (4.00-5.40)
[2020-10-13 07:27] LABS: CALCIUM LEVEL 9.5 MG/DL (8.8-10.2); CREATININE FOR GFR 1.03 MG/DL (0.55-1.30); GLOMERULAR FILTRATION RATE 55.5 (>39); POTASSIUM SERUM 4.4 MEQ/L (3.5-5.1)
[2020-10-13] MEDS: HumaLOG INSULIN (NovoLOG) PER UNIT SC SCH ×2 (07:43→11:40)
[2020-10-13] MEDS: metFORMIN (GLUCOPHAGE) 500 MG TAB PO SCH (07:44)
[2020-10-13 08:23] VITALS: BP 121/70
[2020-10-13] MEDS: ENOXAPARIN 40MG/0.4ML SYRINGE (J1650 PER 10MG) SC SCH (08:23)
[2020-10-13] MEDS: OMEPRAZOLE 20 MG CAP PO SCH (08:23)
[2020-10-13] MEDS: ASPIRIN 81 MG ENTERIC TAB PO SCH (08:23)
[2020-10-13] MEDS: amLODIPine 5 MG TAB PO SCH (08:23)
[2020-10-13] MEDS: CLOPIDOGREL 75 MG TAB PO SCH (08:23)
[2020-10-13] MEDS: ATORVASTATIN 20 MG TAB PO SCH (08:24)
[2020-10-13] MEDS: DOCUSATE SODIUM 100MG CAPSULE PO SCH (08:24)
[2020-10-13] MEDS: MAGNESIUM OXIDE 400 MG TAB (MAG-OX) PO SCH (08:24)
[2020-10-13] MEDS: METOPROLOL SUCC *XL* 25MG TAB (TopROL *XL*) PO SCH (08:24)
[2020-10-13] MEDS: REMEDY PHYTOPLEX Z-GUARD PASTE 113GM TUBE (FROM STOREROOM PRODUCT) TOP SCH ×2 (08:29→15:14)
[2020-10-13] MEDS ORDERED: AMLO1TAB24 PO (09:57)
[2020-10-13] MEDS ORDERED: GLUC500T PO (09:57)
[2020-10-13] MEDS ORDERED: PLAV1TAB2 PO (09:57)
[2020-10-13] MEDS ORDERED: PRIL20TA2 PO (09:57)
[2020-10-13] MEDS ORDERED: SYNT88TA2 PO (09:57)
[2020-10-13] MEDS ORDERED: ATOR40TA75 PO (09:57)
[2020-10-13] MEDS ORDERED: METO1TAB32 PO (09:57)
--- NOTE | 2020-10-13 11:14 | PMRDS ---
NAME: TESHA DAVIS [facility] WT ID#: [id number] : [id number] JOB: [id number] MATTHEW: 10/06/2020 ACCT: [id number] DOCTOR: BOGDAN MENDOZA MD PMR DISCHARGE SUMMARY DATE OF ADMISSION: 10/06/2020 DATE OF DISCHARGE: 10/13/2020 CHIEF COMPLAINT/DISCHARGE DIAGNOSIS: Stroke. HISTORY OF PRESENT ILLNESS: This is a 74-year-old female with a past medical history of migraines, breast cancer status post mastectomy, hypertension, hypothyroidism, history of CVA about one year ago, loop recorder, who presented to [facility] ED on 10/04/2020 with visual disturbances and difficulty seeing objects to the right of her in addition to worsening migraines. CTA demonstrated "minimal chronic ischemic white matter change and atrophy with areas of old infarct involving the right parietal lobe and to a lesser degree the paramedian left occipital lobe." MRI revealed "early subacute left [employer] ischemic infarct." She was continued on aspirin and Plavix and an echo was ordered. She had episodes of low blood pressure for which her Lisinopril was held. Multiple impairments in mobility and ADLs below her prior level of function and deemed medically appropriate for discharge to ARU on 10/06/2020. PAST MEDICAL HISTORY: As per HPI. HOSPITAL COURSE: Patient was admitted and enrolled in a comprehensive PT, OT, Speech Language Pathology Program. She received 24 hour nursing supervision and weekly team meetings were held to discuss her progress. Patient was continued on her aspirin and Plavix with no new deficits noted on exam. She was instructed on how to use compensatory mechanisms for her right sided visual field loss. She was started on Metformin for consistently elevated fingersticks requiring insulin sliding scale. Her Anastrazole medication was discontinued after patient's family member discussed with her primary care physician that this may have contributed to her new stroke. She made steady and considerable gains in therapy, deemed medically and functionally stable to return home. DISCHARGE MEDICATIONS: As per instructions. FUNCTIONAL HISTORY: On discharge, the patient was modified independent for all functional transfers, ambulation and ADLs. Thank you for this referral.
[2020-10-13 14:00] VITALS: BP 133/61
== END 2020-10-13 15:48 | disposition home or self-care (01) | DRG 57 ==
LOC: M PM&R 16:31
PROVIDERS: ADMIT Physical Medicine & Rehabilitation; ATTEND Physical Medicine & Rehabilitation
DX: I69.398 Other sequelae of cerebral infarction (principal); H53.461 Homonymous bilateral field defects, right side; R53.1 Weakness; G43.909 Migraine, unspecified, not intractable, without status migrainosus; I10 Essential (primary) hypertension; E03.9 Hypothyroidism, unspecified; Z85.3 Personal history of malignant neoplasm of breast; Z74.01 Bed confinement status; Z74.1 Need for assistance with personal care; Z90.11 Acquired absence of right breast and nipple; Z79.02 Long term (current) use of antithrombotics/antiplatelets; Z79.899 Other long term (current) drug therapy; Z88.2 Allergy status to sulfonamides; K21.9 Gastro-esophageal reflux disease without esophagitis

== ENCOUNTER → 2021-01-09 | Outpatient (CLI) | payer MEDICARE ==
[~2021-01-09] MED LIST changes: -ACET-908 PO; +ACET-910 PO; +GLUC500T PO; -LISI40TA PO; +LISI40TA4 PO
--- NOTE | 2021-01-09 16:00 | REPMRS ---
Patient History The patient states she had a clinical breast exam in December 2020. Patient is postmenopausal and has history of cancer in the right breast at age 74. No known family history of cancer. Benign MRI guided breast biopsy of the left breast, April 04, 2020. Malignant US guided breast biopsy. of the right breast, April 01, 2020. Mastectomy of the right breast, 2019. Indicated problem(s): left breast bloody discharge. Patient states last year she was having left nipple bloody discharge. Bloody discharge was worked up and stopped shortly after. in 2019. Patient states during her work up it was found that she had right breast cancer and a Right mastectomy followed. Patient states she currently has no breast complaints. Patient has signed the MRS history sheet. Diagnostic Unilateral Mammo: Left Breast - January 09, 2021 - Exam #: [id number] CC and MLO view(s) were taken of the left breast. Technologist: Lauren Iniguez, Technologist Prior study comparison: April 04, 2020, left breast diagnostic unilateral mammo performed at [facility]. April 01, 2020, right breast diagnostic unilateral mammo performed at [facility]. Screening. Digital screening (2D) mammography was performed on the left in the CC and MLO projections. Additionally, breast tomosynthesis (3D mammography) was performed bilaterally in the CC and MLO projections. Todays exam was compared to the prior exams(s). By history, the patient has no complaints of a palpable breast abnormality or other significant breast complaints. The breast is unchanged in size and shapeDense heterogenous fibroglandular elements are seen to such a degree that the sensitivity of the mammogram in detecting cancer is decreased. . There are no derrek-soft tissue densities or spiculated masses. There is no internal architectural distortion.Once again, stable benign appearing calcifications are seen. There are no suspicious derrek-calcific clusters. Skin thickening or nipple retraction is not present. IMPRESSION: BI-RADS Category 2- Benign Findings(s). There is no evidence of malignant alteration of the left breast. Followup examination recommended in one year. The Volpara volumetric breast density category is C, the breasts are heterogenously dense which may obscure small masses. This mammogram was read with the assistance of [employer],an FDA approved computer aided detection system for mammography. Negative x-ray reports should not delay surgical consultation if a dominant or clinically suspicious mass is present. Not all breast cancers can be identified by mammography. Therefore, we recommend that you continue to perform regular breast self-examination and physical examination and then promptly contact your physician of any concerns or changes. Adenosis and dense breasts may obscure an underlying neoplasm. Assessment: BI-RADS/ACR category 2 mammogram. Benign Findings. Recommendation Routine screening mammogram of both breasts in 1 year. Electronically Signed By: Moiz Terry DO 01/09/21 [id number]
== END ==
LOC: M WHC 14:53
PROVIDERS: ATTEND Surgery
DX: D05.11 Intraductal carcinoma in situ of right breast (principal); Z90.11 Acquired absence of right breast and nipple
CPT/HCPCS: 77065; G0279

== ENCOUNTER → 2022-02-12 | Outpatient (CLI) | payer MEDICARE ==
[~2022-02-12] MED LIST changes: -MAGN400T3 PO; +MAGN400T33 PO
== END ==
LOC: M WHC 10:33
PROVIDERS: ATTEND Surgery
DX: D05.11 Intraductal carcinoma in situ of right breast (principal)
CPT/HCPCS: 77065; G0279

== ENCOUNTER → 2022-07-27 | Outpatient (CLI) | payer MEDICARE ==
[~2022-07-27] MED LIST changes: +CLOP75TA99 PO; -PLAV1TAB2 PO
== END ==
LOC: M WHC 15:04
PROVIDERS: ATTEND Nurse Practitioner Women's Health
DX: N64.52 Nipple discharge (principal)
CPT/HCPCS: 76642; 77065; G0279

== ENCOUNTER → 2023-08-01 | Outpatient (CLI) | payer MEDICARE | LOC: M WHC 14:55 | PROVIDERS: ATTEND Nurse Practitioner Women's Health | DX: Z08 Encounter for follow-up examination after completed treatment for malignant neoplasm (principal) | CPT/HCPCS: 77065; G0279 ==

== ENCOUNTER 2024-03-05 06:00 | Day surgery (SDC) | payer MEDICARE ==
[~2024-03-05] VITALS: Ht 165.1 cm; Wt 55.7 kg
[~2024-03-05 06:00] MED LIST changes: +AMLO1TAB25 PO; +BAYE81TA10 PO; +CYAN1000VL SC; +ELIQ5TAB PO; +FERR325T18 PO; +LEVO88TA3 PO; +METF-838 PO; +METO1TAB7 PO; +OMEG-23 PO; +PREV15TA2 PO; +VITA100093 PO
[2024-03-05] MEDS ORDERED: LR 1,000 ML IV SCH (07:00)
[2024-03-05] MEDS: FLURBIPROFEN 0.03% OPHTH SOLN 2.5 ML OS SCH (07:06)
[2024-03-05] MEDS: TETRACAINE 0.5% OPHTH SOLN 4ML OS SCH (07:06)
[2024-03-05] MEDS: ATROPINE SULFATE 1% OPHTH SOLN 2ML BTL OS SCH (07:06)
[2024-03-05] MEDS: PHENYLEPHRINE 2.5% OPHTH SOL 2ML OS SCH (07:06)
[2024-03-05] MEDS ORDERED: MIDAZOLAM INJ 2MG/2ML VIAL As Ordered ONE (07:19)
[2024-03-05] MEDS: LIDOCAINE 1% SDV 5ML VIAL As Ordered ONE (07:42)
[2024-03-05] MEDS: CEFUROXIME 1MG/0.1ML INTRACAMERAL INJ As Ordered ONE (07:42)
[2024-03-05 08:05] VITALS: BP 149/66; TEMP 98.7; O2SAT 94
== END 2024-03-05 08:25 | disposition home or self-care (01) ==
LOC: M SDC 06:00
PROVIDERS: ATTEND Ophthalmology
DX: E11.36 Type 2 diabetes mellitus with diabetic cataract (principal); H25.12 Age-related nuclear cataract, left eye; I10 Essential (primary) hypertension; E03.9 Hypothyroidism, unspecified; K21.9 Gastro-esophageal reflux disease without esophagitis; Z79.899 Other long term (current) drug therapy; Z79.01 Long term (current) use of anticoagulants; Z79.84 Long term (current) use of oral hypoglycemic drugs; Z79.82 Long term (current) use of aspirin; Z85.3 Personal history of malignant neoplasm of breast; Z87.891 Personal history of nicotine dependence; Z88.2 Allergy status to sulfonamides; Z90.710 Acquired absence of both cervix and uterus; Z90.49 Acquired absence of other specified parts of digestive tract
CPT/HCPCS: 66984; J0697; J2250; V2632